=== PATIENT | male | born 1980 | race Caucasian/White ===

== ENCOUNTER 2019-08-14 23:42 | Emergency (ER) | payer SELFPAY ==
[2019-08-14 23:49] VITALS: BP 125/79; PULSE 76; RESP 16; TEMP 37.1; O2SAT 98
--- NOTE | 2019-08-15 00:12 | ED.GENADUL_ITS ---
Discharge Plan Disposition Patient Disposition: HOME Discharge Details Chief Complaint: DentalOral Clinical Impression: Abscess, dental, Current smoker Primary Care Provider: None,None ED Provider: Clif Morton Home Meds and New Rx's Prescriptions: New amoxicillin-pot clavulanate [Augmentin] 875-125 mg tablet 1 tab PO BID Qty: 13 RF: 0 Discontinued clindamycin HCl 300 mg Capsule 300 mg PO Q6H RF: 0 Discharge Instructions Instructions: Dental Abscess (ED), Cigarette Smoking and Your Health (GEN) Additional Instructions: Please take antibiotic as prescribed. Please take ibuprofen over the counter. Take 600mg by mouth every 6 hours as needed for pain. Please take acetaminophen (tylenol) - 650mg every 6 hours by mouth as needed for pain. Please contact a dentist to arrange timely follow-up. Please contact a primary care physician to arrange follow-up. Return to the ER for any worsening or new concerning symptoms. Medical Decision Making 38-year-old male smoker with chronic dental disease here with tooth #4 periapical dental abscess despite ceftriaxone earlier today. Mucosal membrane was anesthetized with bupivacaine topical gel, a periapical dental block was performed and abscess was incised and drained without complication and after informed consent. Plan will be to switch to bacteriocidal Augmentin, discontinue clindamycin and have him follow-up with a dentist. Patient is motivated to stop smoking. He does not currently have a primary care physician and is uninsured. I will ask care management to assist in arranging primary care follow-up. Patient was provided dental provider list in the area. He understands importance of timely follow-up and that he should return should have any worsening or new concerning symptoms. HPI General Mode of arrival: ambulatory . Date/Time Provider Initiated Documentation: 08/14/19 23:55 . Limitations to Documentation: no limitations . Information obtained by: patient . HPI Narrative: 38-year-old male presents with chief complaint of dental pain. Patient notes he started to have a tooth ache right upper molar 3 days ago. Ache was mild and has been persistent and now worsening. He was seen today at urgent care and given a dose of ceftriaxone and prescribed clindamycin. He notes that since earlier today he is developed worsening facial swelling involving his right cheek. Symptoms are now severe with no modifiers. He did have some subjective fever this morning that has re solved. Patient does note poor dentition with chronic tooth fractures. Related Data Home Medications Medication Instructions Recorded Confirmed amoxicillin-pot clavulanate 1 tab PO BID #13 tab 08/15/19 [Augmentin] Previous Rx's Medication Instructions Recorded amoxicillin-pot clavulanate 1 tab PO BID #13 tab 08/15/19 [Augmentin] Allergies Allergy/AdvReac Type Severity Reaction Status Date / Time No Known Allergies Allergy Unverified 08/14/19 23:53 General Stated Complaint: DentalOral CHRISTAL: 3 Review of Systems Constitutional Constitutional: Reports as per HPI and Reports fever(s) ENT Ears, Nose, Mouth, and Throat: Reports as per HPI and Reports facial pain PFSH Social History Do you feel safe at home: Yes Exam Const General: cooperative and no acute distress HENMT Face and sinus: other (right cheek swollen) Mouth: moist mucous membranes Teeth and gingiva: poor dentition and other (tooth #4 with chronic fx and periapical abscess) Throat: posterior oropharynx normal and uvula midline Eyes Conjunctivae: normal conjunctivae EOM: EOM intact bilaterally Neck Neck: trachea midline and supple Resp Auscultation: clear to auscultation bilaterally, no rales, no rhonchi and no wheezes Cardio Jugular venous pressure: no JVD Rate: regular rate and not tachycardic Rhythm: regular rhythm Skin General skin exam: no rashes or lesions noted Neuro General: alert and awake Course Vital Signs Vital signs: Vital Signs Temperature 37.1 C 08/14/19 23:49 Pulse 76 08/14/19 23:49 Respiratory Rate 16 08/14/19 23:49 Blood Pressure 125/79 08/14/19 23:49 Pulse Oximetry 98 08/14/19 23:49 Temperature 37.1 C 08/14/19 23:49 Pulse 76 08/14/19 23:49 Respiratory Rate 16 08/14/19 23:49 Respiratory Effort 08/15/19 00:00 Blood Pressure 125/79 08/14/19 23:49 Pulse Oximetry 98 08/14/19 23:49 Oxygen Delivery Method Room Air 08/14/19 23:49 Oxygen Flow Rate 0 08/14/19 23:49 Pain Level 8 08/14/19 23:49 Procedures Abscess I/D Site: Other (periapical dental) Side (if applicable): Right Local Anesthetic: Other Anesthetic (topical bupivicaine) Technique: Incised with #11 Blade Amount of fluid expressed (mL): 2
[2019-08-15] MEDS: Benzocaine 20% Gel 30 GM JAR MM (00:44)
[2019-08-15] MEDS: Amoxicillin 875/Clav. 125 TAB PO (00:44)
[2019-08-15] MEDS: Lidocaine 2% Multi-Dose 50 ML VIAL (00:44)
[2019-08-15] MEDS: Lidocaine 2% Pres-Free 5 ML VIAL 3 ML IJ (00:44)
== END 2019-08-15 00:47 | disposition home or self-care (01) ==
LOC: ER 08-15 00:51
PROVIDERS: Emergency Provider Student in an Organized Health Care Education/Training Program
DX: K04.7 Periapical abscess without sinus (principal); F17.210 Nicotine dependence, cigarettes, uncomplicated
CPT/HCPCS: 99283

== ENCOUNTER 2020-01-14 16:21 | Emergency (ER) | payer SELFPAY ==
--- NOTE | 2020-01-14 16:31 | ED.GENADUL_ITS ---
Discharge Plan Disposition Patient Disposition: HOME Condition: Stable Discharge Details Chief Complaint: Laceration Clinical Impression: Laceration of wrist, left Primary Care Provider: None,None ED Provider: Jayne Leblanc Discharge Instructions Instructions: Laceration (ED) Additional Instructions: Alternate tylenol and motrin as needed and directed for pain. Keep wound clean and dry. Apply topical antibiotic ointment if you notice any redness, swelling or pain. Cover wound with bandage if risk of contamination. Otherwise you can keep the wound open to air if resting at home to allow edges to dry and heal. Return to the emergency department in 1 week for suture removal. Discharge Data Discharge Date/Time-TO BE ENTERED AT DEPARTURE: 01/14/20 17:30 Discharge Physician: Jayne Leblanc Medical Decision Making 39-year-old male presents with left distal wrist laceration when slipped off a roof and cut with a metal sheet. There is a 3 cm straight laceration noted diagonally on distal left medial wrist. There is fast oozing noted but no pulsatile bleeding. Bleeding controlled with pressure. Wound irrigated well and explored and no evidence of tendon, vascular or nerve injury. Neurovascular intact. An x-ray was ordered initially due to amount of bleeding and question of unknown deeper bony injury. After wound closed, patient had full range of motion of wrist with out any edema, ecchymosis or bony injury. He declined x-ray. 6 sutures placed. Boostrix administered. He was advised to return to the ED in 1 week for suture removal. Advised on proper wound care. Medical Records Medical records reviewed: Yes I reviewed the patient's medical records. HPI General Mode of arrival: ambulatory . Date/Time Provider Initiated Documentation: 01/14/20 16:26 . Limitations to Documentation: no limitations . Information obtained by: patient . HPI Narrative: Patient is a 39-year-old male who presents with left wrist laceration sustained when he slipped off a roof and cut with a metal sheet just prior to arrival. Patient is unsure of his tetanus status. He does admit to pain around the area but he is unsure of any bony injury. He denies any other injuries or lacerations. Related Data Allergies Allergy/AdvReac Type Severity Reaction Status Date / Time No Known Allergies Allergy Unverified 01/14/20 16:39 General CHRISTAL: 3 Review of Systems All systems reviewed & are unremarkable except as noted in HPI and below Constitutional Constitutional: Reports as per HPI, Denies chills and Denies fever(s) Eyes Eyes: Denies blurry vision ENT Ears, Nose, Mouth, and Throat: Denies dizziness, Denies sore throat and Denies throat swelling Cardiovascular Cardiovascular: Denies chest pain and Denies dyspnea Respiratory Respiratory: Denies cough and Denies dyspnea Gastrointestinal Gastrointestinal: Denies abdominal pain, Denies diarrhea and Denies vomiting Genitourinary Genitourinary: Denies hematuria and Denies dysuria Musculoskeletal Musculoskeletal: Denies back pain and Denies numbness Integumentary/Breasts Skin/Breast: Denies lesions and Denies rash Neurologic Neurologic: Denies dizziness, Denies localized weakness and Denies numbness Allergic/Immunologic Allergic/Immunologic: Denies throat swelling [facility] Medical History (Updated 01/14/20 @ 17:12 by Jayne Leblanc DO) No significant past medical history (Acute) Surgical History (Updated 01/14/20 @ 16:32 by Jayne Leblanc DO) No significant past surgical history (Acute) Social History Alcohol Intake: current Alcohol type: beer Do you feel safe at home: Yes Exam Const General: cooperative, healthy appearing and no acute distress HENMT Head: normal to inspection Mouth: oral mucosae normal Eyes General: appearance normal, both eyes and all related structures Neck Neck: normal visual inspection Resp Effort & Inspection: normal respiratory effort and able to speak in complete sentences Cardio Rate: regular rate Skin General skin exam: no rashes or lesions noted Neuro General: patient alert, patient awake and patient oriented x3 Motor: muscle tone normal throughout Extrem Elbow/forearm/wrist images: 1. 3 cm straight laceration noted on lateral distal aspect of left forearm. There is a small hematoma noted subcutaneously. There is fast active oozing of blood but no pulsatile bleeding noted. Other: Left radial and ulnar pulses intact. Tenderness to palpation overlying left distal wrist. No bony deformities noted. No obvious foreign bodies noted. Psych Appearance: grossly normal Affect: normal affect Procedures Laceration Laceration 1: Site: upper extremity (wrist) Side (If applicable): left Size (cm): 3 Description: linear Depth: simple, single layer Local Anesthetic: Lidocaine 1% and with Epi Amount of anesthesia used (mL): 9 Pre-repair: wound explored, irrigated extensively and deep structures intact Skin layer closed with: nylon Size (cm): 5-0 Number of sutures: 6 Technique: simple, interrupted
[2020-01-14 16:32] VITALS: BP 151/87; PULSE 96; TEMP 38; O2SAT 102
[2020-01-14 17:32] VITALS: TEMP 37.4
== END 2020-01-14 17:30 | disposition home or self-care (01) ==
PROVIDERS: Emergency Provider Physician Assistant
DX: S61.512A Laceration without foreign body of left wrist, initial encounter (principal); W26.8XXA Contact with other sharp object(s), not elsewhere classified, initial encounter
CPT/HCPCS: 12002; 90471

== ENCOUNTER 2024-10-21 12:07 | Inpatient (IN) | payer MEDICAID, SELFPAY ==
[2024-10-21] VITALS (21 sets, daily range): BP systolic 128–182; BP diastolic 66–162; PULSE 72–102; RESP 14–23; TEMP 36.6–37; O2SAT 92–100
--- NOTE | 2024-10-21 | DI.RAD_ITS ---
Exam(s) XR PORTABLE CHEST AP POST LINE EXAM: XR PORTABLE CHEST AP POST LINE CLINICAL HISTORY: Placement of PTX catheter. TECHNIQUE: 2D digital imaging was performed. COMPARISON: No exams were available for comparison FINDINGS: Single AP portable view. Heart size is normal. Mediastinum not widened or shifted Left 9th rib fracture noted with some displacement. There is subcutaneous emphysema over the left ch est as seen on proceeding CT scan. There is a thin caliber left side thoracotomy tube. No obvious p neumothorax at this time. No shift. No obvious infiltrates nor prominent lung contusion. IMPRESSION: As above. DATA REPOSITORY: RADIATION DOSE DELIVERED:
--- NOTE | 2024-10-21 12:15 | DI.CT_ITS ---
Exam(s) CT CHEST WO EXAM: CT CHEST WO CLINICAL HISTORY: fall, L rib pain. TECHNIQUE: Multi planar reconstructions were performed. CONTRAST MATERIAL: None COMPARISON: No exams were available for comparison FINDINGS: CHEST: LUNGS: There is a minimally displaced fracture of the posterolateral aspect of the left 9th rib with abundant overlying subcutaneous emphysema. No other rib fractures identified. There is mild subjace nt subpleural lung contusion. And there is also an ipsilateral left-sided pneumothorax approximately 10 percent. In the opposite-right lung there is a thin walled bulla in the medial apex. There also a few small r ight lung nodules including a subpleural 3 millimeter right lower lobe nodule and the 2nd 2-[address] right lower lobe nodule. No pleural effusion. MEDIASTINUM: No evidence of sternal fracture nor mediastinal hematoma. Incidentally noted is a perip herally calcified nodule or in the right thyroid lobe which appears taller than wider in the transver se plane. Recommend ultrasound.No obvious axillary adenopathy CARDIAC: Heart size is normal. There is no pericardial effusion.Caliber of the thoracic aorta is wit hin normal limits. VISUALIZED UPPER ABDOMEN:No significant findings. Left 9th rib fracture as described above. No vert ebral fractures. OSSEOUS: No significant osseous lesions.. IMPRESSION: 1. There is a mildly displaced fracture of the posterolateral aspect of the left 9th rib with small s ubjacent lung contusion and ipsilateral pneumothorax approximately 10 percent. No pleural effusion. 2. No acute right hemithoracic findings although there are few small benign-appearing nodules in the right lung noted. RADIATION DOSE DELIVERED: 333.65mGy.cm Total DLP DATA REPOSITORY: All CT scans at this facility are submitted to the National Radiology Data Registry (NRDR) Dose Index Registry (DIR) with the [employer] (A[employer]). RADIATION OPTIMIZATION: All CT scans at this facility use at least one of these dose optimization te chniques: automated exposure control; mA and/or kV adjustment per patient size (includes targeted exa ms where dose is matched to clinical indication); or iterative reconstruction.
--- NOTE | 2024-10-21 12:18 | ED.GENADUL_ITS ---
Discharge Plan Disposition Patient Disposition: Admit to [facility] Condition: Stable Discharge Details Chief Complaint: Chest/Rib Clinical Impression: Fracture of rib of left side, Pneumothorax Primary Care Provider: None,None ED Provider: David Good Home Meds and New Rx's Prescriptions: No Action No Known Home Meds HPI General Date/Time Provider Initiated Documentation: 10/21/24 12:18 . HPI Narrative: 44 year-old male presents to ED today by POV/ambulating with a chief complaint of fall into a counter with onset about 2 hours ago. Quality described as very painful in L axilla, no radiation to flail segment, paradoxical motion, respiratory distress, endorses mild shortness of breath, nausea due to pain. Severity is described as severe. Palliating factors include nothing specific. Provoking factors include nothing specific. Events leading up to the incident/Associated Symptoms: Patient is a daily drinker. Patient not anticoagulated. Related Data Home Medications ?Medication ?Instructions ?Recorded ?Confirmed Unknown [No Known Home Meds] 10/21/24 10/21/24 Allergies Allergy/AdvReac Type Severity Reaction Status Date / Time No Known Allergies Allergy Unverified 01/14/20 16:39 General Stated Complaint: Chest/Rib CHRISTAL: 3 Review of Systems All systems reviewed & are unremarkable except as noted in HPI and below Exam Narrative Exam Narrative: GENERAL APPEARANCE: Well-nourished, non-toxic, awake and alert, atraumatic, no acute distress. SKIN: Warm, pink, dry, intact, without rashes/lesions/ulcerations. HEAD: Normocephalic, atraumatic, normal hair distribution for gender/age. EYES: Normal conjunctiva, no exudates on lids/lashes. ENT: Nares patent, no circumoral cyanosis, no facial swelling NECK: Supple, trachea midline, painless cervical ROM. LUNGS/CHEST: Lungs CTA bilaterally, non-labored respirations, normal A/P diameter, symmetrical expansion, no chest wall deformity, subcutaneous emphysema in the left posterior chest, focal tenderness in the left posterior lower ribs, no anterior rib tenderness, question diminished lung sounds in the left axilla without rhonchi or wheezing HEART (CV/PV): Regular rate and rhythm without murmur, no peripheral edema, no JVD. ABDOMEN: Soft, non-distended, no guarding. MSK: Normal ROM, no swelling/deformity to bilateral UEs or LEs, moving all extremities without weakness, no cyanosis, spine midline without tenderness, normal curvature. NEURO: Mental Status AAOx4 - alert to person, place, time, events No facial droop, no forehead involvement. Motor: No focal weakness - strength 5/5 in bilateral UEs and LEs, proximal and distal, symmetric. Sensory: sensation intact to light touch globally. Gait normal: patient ambulated without ataxia into ED room. PSYCH: euthymic, cooperative, pleasant, appropriate speech Course Vital Signs Vital signs: Vital Signs Temperature 36.6 C 10/21/24 12:11 Pulse 90 10/21/24 12:11 Respiratory Rate 18 10/21/24 12:11 Blood Pressure 137/90 10/21/24 12:11 Pulse Oximetry 94 10/21/24 12:11 Temperature 36.6 C 10/21/24 12:11 Pulse 90 10/21/24 12:11 Respiratory Rate 18 10/21/24 12:11 Blood Pressure 137/90 10/21/24 12:11 Pulse Oximetry 94 10/21/24 12:11 Medical Decision Making This dictation utilizes [id number] dictation software and may contain unedited grammatical errors. 44 year-old male presents to ED today by POV/ambulating with a chief complaint of fall into a counter with onset about 2 hours ago. Quality described as very painful in L axilla, no radiation to flail segment, paradoxical motion, respiratory distress, endorses mild shortness of breath, nausea due to pain. Severity is described as severe. Palliating factors include nothing specific. Provoking factors include nothing specific. Events leading up to the incident/Associated Symptoms: Patient is a daily drinker.. Patients' medical history: Tobacco use. Family and social history: Endorses daily drinks 3 to 4/day but no recent travel, no sick contacts. Pertinent exam findings / vital signs include subcutaneous emphysema in the left posterior chest, focal tenderness in the left posterior lower ribs, no anterior rib tenderness, question diminished lung sounds in the left axilla without rhonchi or wheezing, benign abdomen, neuro intact. Differential / pathologies of concern include rib fracture, pneumothorax, hemothorax, contusion. Diagnostic studies of: -CT chest without-shows displaced ninth rib fracture with small pneumothorax and subcutaneous emphysema. Interventions of: -Provided Tylenol, ibuprofen, oxycodone, consulted with surgery who admits the patient. ED Course/Assessment/Plan: 44-year-old male fell in his kitchen landing against a countertop and having severe left-sided rib pain especially with deep breathing, he was found to have displaced ninth rib fracture as well as small to moderate left-sided pneumothorax with subcutaneous emphysema in the chest wall, his pain was well- controlled and he was placed on O2 by nonrebreather and admitted to the surgery service by Dr. Harmony Garcia at 1400 hrs. Findings not consistent with tension PTX. Disposition of Pneumothorax, Fracture of Rib of Left Side. Patient verbalized understanding of the plan and return to ED criteria and engaged in shared decision making. Medical Records Medical records reviewed: Yes I reviewed the patient's medical records. Imaging Data Radiologic Study: Attestation: I personally reviewed and interpreted this imaging study as follows: Imaging: CT Scan Radiologist's impression: Addendum created by Nemesio Coburn MD on 10/21/2024 1:10:53 PM EST: THIS REPORT CONTAINS FINDINGS THAT MAY BE CRITICAL TO PATIENT CARE. The findings were verbally communicated via telephone conference with DAVID GOOD at 1:10 PM EST on 10/21/2024. The findings were acknowledged and understood. Initial report created on 10/21/2024 1:09:22 PM EST: PROCEDURE INFORMATION: Exam: CT Chest Without Contrast; Diagnostic Exam date and time: 10/21/2024 12:48 PM Age: 44 years old Clinical indication: Injury or trauma; Other: Fall 4 feet from counter/ left lateral ib pain TECHNIQUE: Imaging protocol: Diagnostic computed tomography of the chest without contrast. 3D rendering (Not supervised by radiologist): MIP and/or 3D reconstructed images were created by the technologist. COMPARISON: No relevant prior studies available. FINDINGS: Thyroid: Partially calcified right thyroid nodule measuring 1.4 cm. Lungs: Right apical bullae. Atelectatic changes in the left lower lobe and right middle lobe. There are multiple subpleural right lower lobe and right middle lobe pulmonary nodules measuring up to 5 mm in the right lower lobe. Left lower lobe ground-glass opacity, consistent with pulmonary contusion. Pleural spaces: There is a small left apical pneumothorax. Heart: Unremarkable. No cardiomegaly. No pericardial effusion. Mediastinal space: No mediastinal shift. Lymph nodes: Unremarkable. No enlarged lymph nodes. Vasculature: Unremarkable. No aortic aneurysm. Liver: There is a diffuse decrease in hepatic parenchymal density, consistent with fatty infiltration. Bones/joints: Minimally displaced fracture of the left 9th rib involving the posterior arch. Soft tissues: There is left posterior and lateral chest wall emphysema. IMPRESSION: Minimally displaced fracture of the posterior arch of the left 9th rib with small left pneumothorax and left chest wall emphysema. No segmental rib fracture. Dictated and Authenticated by: Nemesio Coburn MD. Quality:SDOH Health Related Social Needs: No Data to Display PFSH All Active Problems Pneumothorax (Acute) Fracture of rib of left side (Acute) Smoker (Acute) Medical History (Updated 10/21/24 @ 14:31 by GAYLA Meek) No significant past medical history Surgical History (Updated 01/14/20 @ 16:32 by Jayne Leblanc DO) No significant past surgical history Social History Smoking/Tobacco Use Status: Current every day Tobacco Type: cigarettes Smoking risk assessment performed?: Yes Alcohol Intake: current Alcohol Intake frequency: 3 or more drinks per day Alcohol type: beer Drug use: Daily Substance use type: marijuana Do you feel safe at home: Yes PAWSS Have you Been Recently Intoxicated or Drunk Within the Last 30 days?: No Have you Ever Experienced Previous Episodes of Alcohol Withdrawal?: No Have you ever Experienced Withdrawal Seizures?: No Have you ever Experienced Delirium Tremens(DT)s?: No Have you ever undergone Alcohol Rehabilitation Treatment (i.e, inpt ot outpatient treatment programs)?: No Have you ever Experienced Blackouts?: No Have you ever Combined Alcohol with other Downers within the last 90 days?: No Have you ever Combined Alcohol with any other Substance of Abuse during the last 90 days?: No Positive Blood Alcohol level on Presentation? [PCS.BAL]: No Evidence of Increased Autonomic Activity (i.e. HR>120, tremor, sweating, agitation, nausea)?: No Result: 0
[2024-10-21] MEDS: oxyCODONE 5 MG TAB PO (12:27)
[2024-10-21] MEDS: Ibuprofen 400 MG TAB PO (12:27)
[2024-10-21] MEDS: Acetaminophen 500 MG TAB 1000 MG PO ×2 (12:28→18:30)
--- NOTE | 2024-10-21 13:09 | DI.VRAD_ITS ---
Addendum created by Nemesio Coburn MD on 10/21/2024 1:10:53 PM EST: THIS REPORT CONTAINS FINDINGS THAT MAY BE CRITICAL TO PATIENT CARE. The findings were verbally communicated via telephone conference with RAJ GOOD at 1:10 PM EST on 10/21/2024. The findings were acknowledged and understood. Initial report created on 10/21/2024 1:09:22 PM EST: PROCEDURE INFORMATION: Exam: CT Chest Without Contrast; Diagnostic Exam date and time: 10/21/2024 12:48 PM Age: 44 years old Clinical indication: Injury or trauma; Other: Fall 4 feet from counter/ left lateral ib pain TECHNIQUE: Imaging protocol: Diagnostic computed tomography of the chest without contrast. 3D rendering (Not supervised by radiologist): MIP and/or 3D reconstructed images were created by the technologist. COMPARISON: No relevant prior studies available. FINDINGS: Thyroid: Partially calcified right thyroid nodule measuring 1.4 cm. Lungs: Right apical bullae. Atelectatic changes in the left lower lobe and right middle lobe. There are multiple subpleural right lower lobe and right middle lobe pulmonary nodules measuring up to 5 mm in the right lower lobe. Left lower lobe ground-glass opacity, consistent with pulmonary contusion. Pleural spaces: There is a small left apical pneumothorax. Heart: Unremarkable. No cardiomegaly. No pericardial effusion. Mediastinal space: No mediastinal shift. Lymph nodes: Unremarkable. No enlarged lymph nodes. Vasculature: Unremarkable. No aortic aneurysm. Liver: There is a diffuse decrease in hepatic parenchymal density, consistent with fatty infiltration. Bones/joints: Minimally displaced fracture of the left 9th rib involving the posterior arch. Soft tissues: There is left posterior and lateral chest wall emphysema. IMPRESSION: Minimally displaced fracture of the posterior arch of the left 9th rib with small left pneumothorax and left chest wall emphysema. No segmental rib fracture. Dictated and Authenticated by: Nemesio Coburn MD. Ordering:ALIE Hernandez MD
[2024-10-21] MEDS: HYDROmorphone 2 MG/ML SYR (16:34)
--- NOTE | 2024-10-21 16:42 | HPE_ITS ---
Date of service: 10/21/24 Time of Service: 16:42 Assessment and Plan Assessment and plan (1) Marijuana use, continuous: Status: Acute (2) Daily consumption of alcohol: Status: Acute (3) Emphysematous bleb of lung: Status: Acute (4) Fracture of rib of left side: Status: Acute (5) Pneumothorax: Status: Acute Assessment and plan: We will plan on placing a pneumothorax catheter. Risks include bleeding, infection, pneumonia, blood clots, reaction to medications, damage to lung, blood vessels, bronchus, clotting of the tube and need to place chest tube. Patient consents to insertion. Patient will be admitted Continuous suction -Pulmonary toilet Pain management Hopefully DC catheter in a.m. (6) Smoker: Status: Acute History of Present Illness Narrative: Patient fell off the kitchen counter last night and struck the table. Today he has been experiencing increasing chest pain and came into the ER. He has a broken ninth rib on the left, a large hematoma, and a pneumothorax. He smokes a pack a day He drinks a sixpack or more a day Uses THC daily He is allergic to some type of antibiotics to use for dental infections He is not on any prescription medications He denies any medical problems The only surgery he has ever had is a left sided tendon repair. He denies complications with anesthesia. PFSH All Active Problems Emphysematous bleb of lung (Acute) Daily consumption of alcohol (Acute) Marijuana use, continuous (Acute) Pneumothorax (Acute) Fracture of rib of left side (Acute) Smoker (Acute) Medical History (Updated 10/21/24 @ 16:46 by Harmony Garcia DO) No significant past medical history Surgical History (Updated 01/14/20 @ 16:32 by Jayne Leblanc DO) No significant past surgical history Social History Smoking/Tobacco Use Status: Current every day Tobacco Type: cigarettes Smoking risk assessment performed?: Yes Alcohol Intake: current Alcohol Intake frequency: 3 or more drinks per day Alcohol type: beer Drug use: Daily Substance use type: marijuana Housing: apartment Do you feel safe at home: Yes Meds Allergies and Home Medications Allergies Allergy/AdvReac Type Severity Reaction Status Date / Time No Known Allergies Allergy Unverified 01/14/20 16:39 Home Medications ?Medication ?Instructions ?Recorded ?Confirmed ?Type Unknown [No Known Home Meds] 10/21/24 10/21/24 History Results Last Vital Signs Temp 36.7 C 10/21/24 14:53 Pulse 102 H 10/21/24 15:31 Resp 19 10/21/24 15:31 BP 182/162 H 10/21/24 15:31 Pulse Ox 100 10/21/24 15:31 PAWSS Have you Been Recently Intoxicated or Drunk Within the Last 30 days?: No Have you Ever Experienced Previous Episodes of Alcohol Withdrawal?: No Have you ever Experienced Withdrawal Seizures?: No Have you ever Experienced Delirium Tremens(DT)s?: No Have you ever undergone Alcohol Rehabilitation Treatment (i.e, inpt ot outpatient treatment programs)?: No Have you ever Experienced Blackouts?: No Have you ever Combined Alcohol with other Downers within the last 90 days?: No Have you ever Combined Alcohol with any other Substance of Abuse during the last 90 days?: No Positive Blood Alcohol level on Presentation? [PCS.BAL]: No Evidence of Increased Autonomic Activity (i.e. HR>120, tremor, sweating, agitation, nausea)?: No Result: 0 Time Spent Time spent with Patient: 55-74 minutes Time was spent: preparing to see the patient(eg.review tests), obtaining and/or reviewing separately otained hiistory, ordering medications,tests, procedures, referring, communicating with other health childcare provider, indepentently interpreting results, counseling the patient, care coordination and other
--- NOTE | 2024-10-21 16:47 | W.PM.OP ---
Operative Note Operative Note PRE-OP DIAGNOSIS: Left pneumothorax and rib fracture POST-OP DIAGNOSIS: same SURGEON: Harmony Garcia ANESTHESIA TYPE: Local By Surgeon Refer to Anesthesia Record ESTIMATED BLOOD LOSS: 1 PATHOLOGY: none sent COMPLICATIONS: None Patient was transported to: no change Patient's condition: stable Procedure Description: CONSENT:? Consent was obtained from the pt prior to the procedure. Indications, risks, and benefits were explained, including but not limited to: bleeding, infection, damage to lung, persistent air leak, and complications of the anethesetics.? ? PROCEDURE SUMMARY: A time out was performed and after the chest x-ray was reviewed, the appropriate side was confirmed and marked. My hands were washed immediately prior to the procedure. The patient was prepped and draped in a sterile manner using chlorhexidine scrub after the patient was positioned in the usual fashion. A total of 10 ml of 1% lidocaine was used to anesthetized the skin, subcutaneous tissue, superior aspect of the rib periosteum and parietal pleura. A stab incision was then made in the left 2nd intercostal space / midaxillary line. The catheter over needle system was introduced into the chest.? Air was aspirated as the catheter is inserted into the chest; there was no blood.? The catheter was inserted easily. The catheter was sutured to the skin at the insertion site, and connected securely with tape to a pleurovac. A sterile occlusive dressing was placed over the insertion site. No immediate complications were noted. A post-procedure chest x-ray is pending at the time of this note. ?Estimated blood loss is <1cc. Date of Procedure: 10/21/24
--- NOTE | 2024-10-21 17:44 | W.PC.ACHO ---
Registration Status: Primary Language: Preferred Language: ED Information & Data Chief Complaint Chest/Rib 10/21/24 12:18 Triage Note Patient complaining of left 10/21/24 12:11 rib pain. Patient fell off his counter, hitting another counter Medical / Surgical History (Last Updated 01/14/20 @ 16:32 by Jayne Leblanc DO) No significant past medical history (Last Updated 01/14/20 @ 16:32 by Jayne Leblanc DO) No significant past surgical history Most Recent Vital Signs Temperature 36.7 C 10/21/24 14:53 Pulse 75 10/21/24 17:30 Pulse 74 10/21/24 17:40 Respiratory Rate 16 10/21/24 17:40 Respiratory Effort Normal 10/21/24 12:59 Respiratory Depth Normal 10/21/24 12:59 Respiratory Pattern Normal 10/21/24 12:59 Blood Pressure 151/77 H 10/21/24 17:30 Blood Pressure Mean 102 10/21/24 17:30 Pulse Oximetry 92 10/21/24 17:40 Oxygen Delivery Method Non-Rebreather 10/21/24 13:22 Oxygen Flow Rate 0 10/21/24 13:22 Pain Level 6 10/21/24 12:59 Allergies No Known Allergies Allergy (Unverified 01/14/20 16:39) Precautions Isolation Standard precaution 10/21/24 12:13 Diet Orders Category Date Time Status Regular/Normal [DIET] Nutrition 10/21/24 Dinner Active Intake and Output - 24 Hour Total 10/21/24 12:07 thru 10/21/24 12:11 Weight 86.183 kg Falls Risk Assessment History of Falls Previous History 10/21/24 12:59 Contributing Factors No Factors 10/21/24 12:59 Ambulatory Aids Independent 10/21/24 12:59 Tubes/Lines None 10/21/24 12:59 Gait Evaluation No gait disturbance 10/21/24 12:59 Cognition No cognitive impairment 10/21/24 12:59 Fall Total Score 15 10/21/24 12:59 Level of Risk Standard/Low Risk 10/21/24 12:59 Problems Emphysematous bleb of lung (Acute) Daily consumption of alcohol (Acute) Marijuana use, continuous (Acute) Pneumothorax (Acute) Fracture of rib of left side (Acute) Smoker (Acute) v v v v v v v v v Sending and/or Receiving Nurses: Please use comment section below to note any information pertinent to the patient hand-off not included above. Information / Comments: Report received from: Taylor HUNG (Emergency Department )
[2024-10-21] MEDS: Lidocaine 5% Patch 1 PATCH TP (18:29)
[2024-10-21] MEDS: Ketorolac 15 MG/ML VIAL IVP (18:29)
[2024-10-21] MEDS: Nicotine 14 MG/24 HR PATCH TD (18:37)
[2024-10-21] MEDS: Normal Saline Flush 10 ML SYR IVP (20:28)
[2024-10-22] VITALS (8 sets, daily range): BP systolic 134–140; BP diastolic 84–94; PULSE 72–85; RESP 3–18; TEMP 35.7–37.2; O2SAT 97–98
[2024-10-22] MEDS: Acetaminophen 500 MG TAB 1000 MG PO ×5 (00:27→23:40)
[2024-10-22] MEDS: Ketorolac 15 MG/ML VIAL IVP ×5 (00:28→23:40)
[2024-10-22] MEDS: Albuterol 2.5 MG/3 ML INH SOLN VIAL UPD ×2 (01:55→11:26)
[2024-10-22] MEDS: Nicotine 14 MG/24 HR PATCH TD (07:33)
[2024-10-22] MEDS: Normal Saline Flush 10 ML SYR IVP ×2 (07:34→19:28)
--- NOTE | 2024-10-22 08:23 | DI.RAD_ITS ---
Exam(s) XR PORTABLE CHEST AP EXAM: XR PORTABLE CHEST AP CLINICAL HISTORY: Follow-up on pneumothorax. TECHNIQUE: 2D digital imaging was performed. COMPARISON: CR XR PORTABLE CHEST AP POST LINE from 10/21/2024 FINDINGS: Single AP portable view. Position of the thin caliber chest tube is stable. Fractured left 9th rib again noted as well as ips ilateral subcutaneous emphysema, unchanged. There is a tiny remaining low 5 percent pneumothorax in the left lung apex. No infiltrates nor pleur al effusions. Heart size is upper normal. The mediastinum is not widened. IMPRESSION: Thin caliber left chest tube. Minimal remaining pneumothorax. DATA REPOSITORY: RADIATION DOSE DELIVERED:
--- NOTE | 2024-10-22 09:21 | DI.VRAD_ITS ---
PROCEDURE INFORMATION: Exam: XR Chest Exam date and time: 10/22/2024 8:18 AM Age: 44 years old Clinical indication: Condition or disease; Other: Follow up on pneumothorax TECHNIQUE: Imaging protocol: Radiologic exam of the chest. Views: 1 view. COMPARISON: CR XR PORTABLE CHEST AP POST LINE 10/21/2024 5:15 PM FINDINGS: Tubes, catheters and devices: Stable small caliber chest tube terminates in the left upper lobe.. Lungs: Left basilar atelectasis. Pleural spaces: Very minimal pneumothorax is seen in the left apex.. Heart/Mediastinum: Stable cardiac silhouette Bones/joints: Stable left rib fracture Soft tissues: Subcutaneous emphysema is noted in the left supraclavicular region IMPRESSION: 1. Stable small caliber chest tube terminates in the left upper lobe.. 2. Very minimal pneumothorax is seen in the left apex.. Dictated and Authenticated by: Orlando Saldaña MD. Ordering:NELSON Antunez MD
--- NOTE | 2024-10-22 09:40 | PDOC.CMIN ---
Date of service: 10/22/24 Time of Service: 09:40 Care Management Initial Assmt Initial Assessment Reason for Hospitalization: pneumothorax, rib fracture Functional Status/Living Situation Patient Presentation: Jelani was sitting up in bed when CM met with him. He stated that he is still feeling pain, which comes and goes, especially with movement. 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 He stated that he does not know when he will be able to return to work after this injury. CM sent a referral to [employer] for insurance support. CM will also coordinate a PCP referral, as he does not have a current PCP. CM asked if he is interested in support for alcohol or tobacco cessation support; he stated that this situation has scared him, and that is motivating for him to stop smoking and reduce his alcohol intake as well. He declined any supports, and stated that he is currently reading a book titled The Easy Way to Stop Smoking by Ayden Figueroa, and it is very helpful, and he feels that this will be effective in changing his behavior/habits, by changing his mindset. CM will continue to follow. Town of Residence: [facility] Resides with: Alone Natural Supports: Mother, Lelia Instrumental Activities of Daily Living (ADLs): Independent Medications Medication Management: No Issues/Barriers identified Advance Directives Advance Directives: Do you have an Advance Directive: N 08/14/19 23:47 AD On File at [facility]: N 08/14/19 23:47 Date Asked 01/14/20 01/14/20 16:29 AD Date Reviewed COLST On File at [facility] COLST Date Scanned Code Status Resuscitation Status Full Code Insurance Coverage/Financial Issues Insurance: self pay; [employer] referral sent Care Team Visit Care Team Role Provider Type None None Primary Care Provider NON-[facility] STAFF PHYSICIAN GAYLA Meek Emergency Provider [employer] Harmony Garcia, DO Admit Provider OSTEOPATHIC DOCTOR Attending Provider Discharge Potential Discharge Needs: Surgical F/U Appt Anticipated Barriers to Discharge: None Identified Patient/Family Education Needs: Review discharge instructions, discuss Ask Me Three Transportation: Private vehicle Plan: Anticipate Jelani will return home once medically cleared. CM sent a referral to [employer] for insurance support, and will provide him with a financial assistance packet for [facility]. He will transport home via private vehicle by family. He will follow up with surgical services and his discharge plan of care. CM will continue to follow. Social Determinants of Health Screening Social Determinants of Health last assessed: 10/22/24 Will the Patient Participate in the Screening?: Yes Do you worry about having a steady place to live?: yes What is your living situation today?: I have housing today, but am worried about losing it Problems where you live: no known problems In the past 12 months, have you had to go without electric, gas, oil or water in your home?: no Have you or anyone in your house had to go without enough food to eat?: no Has lack of transportation kept you from medical appointments or from doing things needed for daily living?: no Has anyone in your life made you feel unsafe or unsupported?: no How hard is it for you to pay for the very basics like food, housing, medical care, and heating? Would you say it is:: Somewhat hard Do you want help finding or keeping work or a job?: I do not need or want help If for any reason you need help with day-to-day activities such as bathing, preparing meals, shopping, managing finances, etc., do you get the help you need?: I could use a little more help How often do you feel lonely or isolated from those around you?: Rarely Do you speak a language other than Vietnamese at home?: Yes Does the patient want assistance with any of the above?: No Health Related Social Needs Health related social needs: housing instability, housed, with risk of homelessness (Z59.811), problems related to housing/economic circumstances (Z59.89), problems with daily activities (Z73.9), feeling lonely/isolated (Z60.8) and education (Z55.6) PFSH All Active Problems Emphysematous bleb of lung (Acute) Daily consumption of alcohol (Acute) Marijuana use, continuous (Acute) Pneumothorax (Acute) Fracture of rib of left side (Acute) Smoker (Acute) Medical History (Updated 10/21/24 @ 16:46 by Harmony Garcia DO) No significant past medical history Surgical History (Updated 01/14/20 @ 16:32 by Jayne Leblanc DO) No significant past surgical history Social History Smoking/Tobacco Use Status: Current every day Tobacco Type: cigarettes Smoking risk assessment performed?: Yes Alcohol Intake: current Alcohol Intake frequency: 3 or more drinks per day Alcohol type: beer Drug use: Daily Substance use type: marijuana Housing: apartment Do you feel safe at home: Yes
--- NOTE | 2024-10-22 10:49 | PHA.REVIEW2 ---
Pharmacy Admission Review Admission Clinical Review Admission Pharmacy Review: Emphysematous bleb of lung (Acute) Daily consumption of alcohol (Acute) Marijuana use, continuous (Acute) Pneumothorax (Acute) Fracture of rib of left side (Acute) Smoker (Acute) Penicillins Allergy (Unknown, Unverified 10/21/24 20:55) Hives Resuscitation Status Full Code Height 6 ft 2 in Weight 86.36 kg Comments Comments/Follow Ups: POD #1 Left pneumothorax and rib fracture Pharmacy Admission Review Renal Dosing Medications needing adjustments: N/A (No SCr on file) Anticoagulation DVT Prophylaxis: Reviewed Medications: Enoxaparin (40mg daily) Opiate Usage Evaluate Pain Scale/Pains Meds: Reviewed (morphine 2mg IVP q1h PRN - no doses given, pain level 5 at 0829 this AM) Scheduled Bowel Reg ordered if on Opiates?: No Relevant Labs Electrolytes, C-Reactive P, ESR: N/A (No labs on file) Cardiac Review BP, HR, EF%: Reviewed (BP 135/94, HR WNL) QTc Review QTc: Reviewed (No EKG on file) IV to PO Switch IV Medications: Reviewed (ketorolac, morphine and ondansetron) Home Meds Home Med List reviewed: Reviewed (No known home meds) Current Meds Current Medication Order Review: Intervened Comments: Added lidocaine patch removal order Comments Comments/Follow Ups: POD #1 Left pneumothorax and rib fracture
--- NOTE | 2024-10-22 11:16 | W.PM.PROGNOT ---
Date of Service Date of service: 10/22/24 Time of Service: 11:16 Assessment and Plan Assessment and plan (1) Fracture of rib of left side: Status: Acute (2) Smoker: Status: Acute (3) Pneumothorax: Status: Acute Assessment and plan: Resolved and catheter is removed. Encourage pulmonary toilet. Encourage pain management. Encourage ambulation. The patient does not have insurance and has no prescription drug coverage. He does not have any money for his prescriptions. He is worried about pain control and developing pneumonia. We will keep him in the hospital until we can get a firm plan for prescription coverage and plan discharge in a.m. We discussed the importance of smoking cessation to prevent any further complications with emphysema. Patient is very interested in smoking cessation. (4) Emphysematous bleb of lung: Status: Acute Subjective Subjective Interval history since last seen: Patient is seen and examined: they are doing well. THey have : no headaches. No CP or SOB. no productive cough. no dysuria. no leg pain or swelling. Patient notes pain with coughing. There is no airleak. Chest x-ray Dipika reviewed and show no pneumothorax. Chest tube is removed. Exam Narrative Exam Narrative: PHYSICAL EXAM GENERAL APPEARANCE: Alert, healthy appearance, oriented, x 3,? in no acute distress HYDRATION: Well hydrated HEAD, EYES, EARS, NECK, THROAT: Head is normocephalic, pupils equal, round, reactive to light and accommodation, ocular movement intact, sclera clear and no jaundice. ?Dentition intact. LUNGS: normal respiration/normal chest excursion. ?Clear to auscultation bilaterally. ?No wheeze. Puncture site is clean dry and intact. Catheter is removed and occlusive dressing applied. ?HEART: Regular rate and rhythm. no murmurs EXTREMITY: No edema or cyanosis.? no leg pain, redness, swelling.? No hernias.? Objective Last Vital Signs Temp 36.7 C 10/22/24 07:24 Pulse 77 10/22/24 07:24 Resp 18 10/22/24 08:27 BP 135/94 H 10/22/24 07:24 Pulse Ox 97 10/22/24 07:24 PAWSS Have you Been Recently Intoxicated or Drunk Within the Last 30 days?: Yes Have you Ever Experienced Previous Episodes of Alcohol Withdrawal?: No Have you ever Experienced Withdrawal Seizures?: No Have you ever Experienced Delirium Tremens(DT)s?: No Have you ever undergone Alcohol Rehabilitation Treatment (i.e, inpt ot outpatient treatment programs)?: No Have you ever Experienced Blackouts?: No Have you ever Combined Alcohol with other Downers within the last 90 days?: No Have you ever Combined Alcohol with any other Substance of Abuse during the last 90 days?: No Positive Blood Alcohol level on Presentation? [PCS.BAL]: No Evidence of Increased Autonomic Activity (i.e. HR>120, tremor, sweating, agitation, nausea)?: No Result: 1 Time Spent with Patient Time Spent with Patient: 25-34 minutes Time was spent: preparing to see the patient(eg.review tests), obtaining and/or reviewing separately otained hiistory, ordering medications,tests, procedures, referring, communicating with other health professional healthcare representative, indepentently interpreting results, counseling the patient, care coordination and other
[2024-10-22] MEDS: Patch Removal LIDOCAINE 1 EACH TP (12:08)
--- NOTE | 2024-10-22 12:35 | DI.RAD_ITS ---
Exam(s) XR PORTABLE CHEST AP EXAM: XR PORTABLE CHEST AP CLINICAL HISTORY: f/u PTX suction is off. TECHNIQUE: 2D digital imaging was performed. COMPARISON: CR,XR XR PORTABLE CHEST AP from 10/22/2024 FINDINGS: Single AP portable view. Heart size is upper normal. The mediastinum is not widened. Thin caliber left chest tube again noted, unchanged in position. Fractured left 9th rib again noted. Mild increased markings in the left lower lobe retrocardiac region are noted which are probably rel ated to hypoaeration. There is no obvious remaining pneumothorax. The amount of ipsilateral subcuta neous emphysema is unchanged. No right lung findings. No obvious pleural effusions. IMPRESSION: As above. Minimal if any significant remaining pneumothorax on the left side. DATA REPOSITORY: RADIATION DOSE DELIVERED:
--- NOTE | 2024-10-22 12:45 | DI.VRAD_ITS ---
PROCEDURE INFORMATION: Exam: XR Chest Exam date and time: 10/22/2024 12:30 PM Age: 44 years old Clinical indication: Condition or disease; Other: F/u ptx, suction is off TECHNIQUE: Imaging protocol: Radiologic exam of the chest. Views: 1 view. COMPARISON: CR XR PORTABLE CHEST AP 10/22/2024 8:18 AM FINDINGS: Tubes, catheters and devices: Stable small caliber chest tube terminates in the left upper quadrant. Lungs: Opacity in the left base may represent atelectasis or pneumonia.. Pleural spaces: Stable very small pneumothorax in the left apex. Heart/Mediastinum: Unremarkable. No cardiomegaly. Bones/joints: Unremarkable. Soft tissues: Stable subcutaneous emphysema on the left IMPRESSION: 1. Stable small caliber chest tube terminates in the left upper quadrant. 2. Opacity in the left base may represent atelectasis or pneumonia.. 3. Stable very small pneumothorax in the left apex. Dictated and Authenticated by: Orlando Saldaña MD. Ordering:NELSON Antunez MD
[2024-10-22] MEDS: traMADol 50 MG TAB PO (15:08)
[2024-10-22] MEDS: Lidocaine 5% Patch 1 PATCH TP (18:17)
[2024-10-22] MEDS: Enoxaparin 40 MG/0.4 ML SYR SC (18:30)
--- NOTE | 2024-10-23 | DI.RAD_ITS ---
Exam(s) XR CHEST 2V PA LATERAL EXAM: XR CHEST 2V PA LATERAL CLINICAL HISTORY: f/u PTX TECHNIQUE: 2D digital imaging was performed of the chest. Three images were obtained. PA and later al views were obtained. COMPARISON: CR,XR XR PORTABLE CHEST AP from 10/22/2024 FINDINGS: There has been interval removal of the left chest tube. MEDIASTINUM: Normal. HEART: Normal. PULMONARY VASCULATURE: Normal. LUNGS: There is atelectasis in the left lower lobe. The right lung is clear. PLEURAL SPACE: There has been a slight interval increase in size of the left pneumothorax. The pneum othorax is 2.9 cm from the lung apex compared to 0.9 on the prior examination. No right pneumothorax . No pleural effusion. BONE:Within normal limits for the patient's age. There is again seen a mildly displaced fracture inv olving the posterolateral aspect of the left 9th rib. OTHER FINDINGS:There is been slight interval increase in the amount of subcutaneous air along the lef t chest wall. IMPRESSION: 1. Interval removal of the left chest tube with interval increase in size of the small left apical pn eumothorax. 2. Stable left 9th rib fracture. 3. Slight interval increase in size of the subcutaneous emphysema along the left chest wall. DATA REPOSITORY: RADIATION DOSE DELIVERED:
--- NOTE | 2024-10-23 | DI.RAD_ITS ---
Exam(s) XR CHEST 2V PA LATERAL EXAM: XR CHEST 2V PA LATERAL CLINICAL HISTORY: left pneumothorax. TECHNIQUE: 2D digital imaging was performed. COMPARISON: CR XR PORTABLE CHEST AP POST LINE from 10/21/2024 CR,XR XR PORTABLE CHEST AP from 10/22/2024 CR,XR XR PORTABLE CHEST AP from 10/22/2024 CR XR CHEST 2V PA LATERAL from 10/23/2024 FINDINGS: 2 views: The thin caliber left chest tube is again noted to have been removed. The amount of subcutaneous emphysema over the left chest wall and left-sided neck is again noted to h ave increased from yesterday but remain stable when compared to earlier today. This makes it difficu lt to accurately assess for the presence of ipsilateral pneumothorax. However, the size of the left pneumothorax appears similar to earlier today, approximately 15-20 perc ent. Left 9th rib fracture again noted IMPRESSION: There is a 15-20 percent left-sided pneumothoraxwhich appears unchanged in size from earlier today. The amount of subcutaneous emphysema is again noted to have increased since removal of the left chest tube. DATA REPOSITORY: RADIATION DOSE DELIVERED:
[2024-10-23] MEDS: Albuterol 2.5 MG/3 ML INH SOLN VIAL UPD ×3 (00:15→12:27)
[2024-10-23 00:20] VITALS: PULSE 90; RESP 18; RESP 2; RESP 3; RESP 7; O2SAT 98
[2024-10-23] MEDS: Ketorolac 15 MG/ML VIAL IVP ×2 (05:35→12:04)
[2024-10-23] MEDS: Acetaminophen 500 MG TAB 1000 MG PO ×4 (05:36→23:15)
[2024-10-23 05:49] VITALS: PULSE 85; RESP 18; RESP 2; RESP 9; O2SAT 98
[2024-10-23 07:37] VITALS: BP 142/7; PULSE 74; RESP 18; TEMP 36; O2SAT 97
[2024-10-23] MEDS: Normal Saline Flush 10 ML SYR IVP ×3 (09:50→19:33)
[2024-10-23 12:34] VITALS: PULSE 93; RESP 9
--- NOTE | 2024-10-23 13:19 | W.NUTRFU ---
Date of service: 10/23/24 Time of Service: 13:20 Nutrition Note NOTE: pt admitted for rib fxr, pnemothorax. Weight stable, good intake but refused brakfast today due to wanting more rest. declines ons for support. no special nutrition needs upon intitial screen and interview with pt - deemed lower nutritional risk. Will continue to follow weight, labs, intake for changes. Time Spent in Nutritional Counseling and Treatment: 5 min
--- NOTE | 2024-10-23 15:02 | PGE_ITS ---
Date of Service Date of service: 10/23/24 Time of Service: 15:02 Assessment and Plan Assessment and plan (1) Fracture of rib of left side: Status: Acute Assessment and plan: Brandon is doing quite well with the incentive spirometer, but is still requiring some intravenous pain medications. I am encouraged him to try to wean off these through the course of tonight if he is able to. We could certainly add some gabapentin, but he is already on a fairly broad multimodal pain regimen, and I hate to complicate things with other medications especially for trying to work towards discharge, and affording some of these medications may be challenging. Would also like to see how the pain in the left sternocleidomastoid evolves over the next 24 hours. I suspect this is just secondary to some redistribution of the subcutaneous emphysema as the exam is overall very reassuring. Subjective Subjective Interval history since last seen: Brandon is done pretty well through the course of today, but is still requiring some intravenous pain medication to help with pulmonary toileting. He has particular increase in the pain with coughing. He also has a little bit of pain radiating up along the left sternocleidomastoid muscle today, which he did not notice previously. Exam Resp Other: Lung sounds are clear. There are equal bilaterally. There is a tiny bit of bony crepitus over the rib fracture site, and some subcutaneous emphysema along the left shoulder. Objective Last Vital Signs Temp 96.8 F L 10/23/24 07:37 Pulse 93 H 10/23/24 12:34 Resp 18 10/23/24 07:37 BP 142/7 H 10/23/24 07:37 Pulse Ox 97 10/23/24 07:37 PAWSS Have you Been Recently Intoxicated or Drunk Within the Last 30 days?: Yes Have you Ever Experienced Previous Episodes of Alcohol Withdrawal?: No Have you ever Experienced Withdrawal Seizures?: No Have you ever Experienced Delirium Tremens(DT)s?: No Have you ever undergone Alcohol Rehabilitation Treatment (i.e, inpt ot outpatient treatment programs)?: No Have you ever Experienced Blackouts?: No Have you ever Combined Alcohol with other Downers within the last 90 days?: No Have you ever Combined Alcohol with any other Substance of Abuse during the last 90 days?: No Positive Blood Alcohol level on Presentation? [PCS.BAL]: No Evidence of Increased Autonomic Activity (i.e. HR>120, tremor, sweating, agitation, nausea)?: No Result: 1 Time Spent with Patient Time Spent with Patient: <25 minutes Time was spent: preparing to see the patient(eg.review tests), referring, communicating with other health health care sanitary technician, indepentently interpreting results and counseling the patient
[2024-10-23 15:12] VITALS: BP 116/81; PULSE 84; RESP 20; TEMP 37.8; O2SAT 98
--- NOTE | 2024-10-23 16:14 | CMPROGNOTE_ITS ---
Date of service: 10/23/24 Time of Service: 16:14 Care Management Progress Note Progress Note Text Progress Note Text: Andrei was sitting up in bed when CM met with him. He stated that he is still having pain today. Per MD, he has pain in his neck today, and MD would like to keep him overnight to monitor this. Andrei met with [employer] via phone today, and they completed an application for insurance. stated that Andrei may be discharged with a new prescription for tramadol and skelaxin; CM found a [employer] coupon for [employer] for each- tramadol is about $6, and skelaxin is about $54. CM will continue to follow. Discharge Potential Discharge Needs: Surgical F/U Appt Anticipated Barriers to Discharge: None Identified Patient/Family Education Needs: Review discharge instructions, discuss Ask Me Three Transportation: Private vehicle Plan: Anticipate Jelani will return home once medically cleared. CM sent a referral to [employer] for insurance support, and will provide him with a financial assistance packet for [facility]. He will transport home via private vehicle by family. He will follow up with surgical services and his discharge plan of care. CM will continue to follow. Social Determinants of Health Screening Social Determinants of Health last assessed: 10/23/24 Will the Patient Participate in the Screening?: Yes Do you worry about having a steady place to live?: yes What is your living situation today?: I have housing today, but am worried about losing it Problems where you live: no known problems In the past 12 months, have you had to go without electric, gas, oil or water in your home?: no Have you or anyone in your house had to go without enough food to eat?: no Has lack of transportation kept you from medical appointments or from doing things needed for daily living?: no Has anyone in your life made you feel unsafe or unsupported?: no How hard is it for you to pay for the very basics like food, housing, medical care, and heating? Would you say it is:: Somewhat hard Do you want help finding or keeping work or a job?: I do not need or want help If for any reason you need help with day-to-day activities such as bathing, preparing meals, shopping, managing finances, etc., do you get the help you need?: I could use a little more help How often do you feel lonely or isolated from those around you?: Rarely Do you speak a language other than Luxembourger at home?: Yes Does the patient want assistance with any of the above?: No Health Related Social Needs Health related social needs: housing instability, housed, with risk of homelessness (Z59.811), problems related to housing/economic circumstances (Z59.89), problems with daily activities (Z73.9), feeling lonely/isolated (Z60.8) and education (Z55.6)
[2024-10-23] MEDS: Lidocaine 5% Patch 1 PATCH TP (18:27)
[2024-10-23] MEDS: Enoxaparin 40 MG/0.4 ML SYR SC (18:28)
[2024-10-23 19:37] VITALS: BP 139/88; PULSE 77; RESP 20; TEMP 37.9; O2SAT 98
[2024-10-24] MEDS: traMADol 50 MG TAB PO ×3 (06:30→23:05)
[2024-10-24] MEDS: Acetaminophen 500 MG TAB 1000 MG PO ×4 (06:30→23:04)
[2024-10-24] MEDS: Patch Removal LIDOCAINE 1 EACH TP (06:31)
[2024-10-24 07:45] VITALS: BP 138/88; PULSE 77; RESP 18; TEMP 36.2; O2SAT 100
--- NOTE | 2024-10-24 08:39 | PGE_ITS ---
Date of Service Date of service: 10/24/24 Time of Service: 08:39 Assessment and Plan Assessment and plan (1) Fracture of rib of left side: Status: Acute Assessment and plan: apin controlled d/c in am see d/c summary CM helping w/ payment for Rx (2) Pneumothorax: Status: Acute Assessment and plan: minimal/improved today (3) Emphysematous bleb of lung: Status: Acute (4) Smoker: Status: Acute (5) Subcutaneous emphysema: Status: Acute Assessment and plan: resolving Subjective Subjective Interval history since last seen: Patient is seen and examined: they are doing well. THey have : no headaches. No CP or SOB. no productive cough. no dysuria. no leg pain or swelling. pt c/o crepitus on neck/jaw and chest. pain controlled + BM Exam Narrative Exam Narrative: PHYSICAL EXAM GENERAL APPEARANCE: Alert, healthy appearance, oriented, x 3,? in no acute distress HYDRATION: Well hydrated HEAD, EYES, EARS, NECK, THROAT: Head is normocephalic, pupils equal, round, reactive to light and accommodation, ocular movement intact, sclera clear and no jaundice. ?Dentition intact. LUNGS: normal respiration/normal chest excursion. ?Clear to auscultation bilaterally. ?No wheeze. Minimal crepitus ?HEART: Regular rate and rhythm. no murmurs EXTREMITY: No edema or cyanosis.? no leg pain, redness, swelling.? ABDOMEN: soft and non-tender to palpation.? Normal bowel sounds.? ? bruise L flank Objective Last Vital Signs Temp 36.2 C L 10/24/24 07:45 Pulse 77 10/24/24 07:45 Resp 18 10/24/24 07:45 BP 138/88 10/24/24 07:45 Pulse Ox 100 10/24/24 07:45 PAWSS Have you Been Recently Intoxicated or Drunk Within the Last 30 days?: Yes Have you Ever Experienced Previous Episodes of Alcohol Withdrawal?: No Have you ever Experienced Withdrawal Seizures?: No Have you ever Experienced Delirium Tremens(DT)s?: No Have you ever undergone Alcohol Rehabilitation Treatment (i.e, inpt ot outpatient treatment programs)?: No Have you ever Experienced Blackouts?: No Have you ever Combined Alcohol with other Downers within the last 90 days?: No Have you ever Combined Alcohol with any other Substance of Abuse during the last 90 days?: No Positive Blood Alcohol level on Presentation? [PCS.BAL]: No Evidence of Increased Autonomic Activity (i.e. HR>120, tremor, sweating, agitation, nausea)?: No Result: 1 Time Spent with Patient Time Spent with Patient: <25 minutes Time was spent: preparing to see the patient(eg.review tests), obtaining and/or reviewing separately otained hiistory, ordering medications,tests, procedures, referring, communicating with other health patient care nursing assistant, indepentently interpreting results, counseling the patient, care coordination and other
[2024-10-24] MEDS: Normal Saline Flush 10 ML SYR IVP ×2 (08:48→20:34)
--- NOTE | 2024-10-24 08:48 | CMPROGNOTE_ITS ---
Date of service: 10/24/24 Time of Service: 08:48 Care Management Progress Note Progress Note Text Progress Note Text: Brandon was sitting up in bed when CM met with him. He is working with a CHW at [facility] and will be eligible for healthcare coverage Nov 18, and advises CM that it wont be retroactive to this hospital stay. CM provided him with a patient assistance form and RX savings card for [employer]. Discharge Potential Discharge Needs: PCP F/U Appt and Surgical F/U Appt Anticipated Barriers to Discharge: None Identified Patient/Family Education Needs: Review discharge instructions, discuss Ask Me Three Transportation: Private vehicle Plan: Anticipate Jelani will return home once medically cleared. CM sent a referral to [facility] for insurance support, and will provide him with a financial assistance packet for [place]. He will transport home via private vehicle by family. He will follow up with surgical services and his discharge plan of care. CM will continue to follow. Social Determinants of Health Screening Social Determinants of Health last assessed: 10/24/24 Will the Patient Participate in the Screening?: Yes Do you worry about having a steady place to live?: yes What is your living situation today?: I have housing today, but am worried about losing it Problems where you live: no known problems In the past 12 months, have you had to go without electric, gas, oil or water in your home?: no Have you or anyone in your house had to go without enough food to eat?: no Has lack of transportation kept you from medical appointments or from doing things needed for daily living?: no Has anyone in your life made you feel unsafe or unsupported?: no How hard is it for you to pay for the very basics like food, housing, medical care, and heating? Would you say it is:: Somewhat hard Do you want help finding or keeping work or a job?: I do not need or want help If for any reason you need help with day-to-day activities such as bathing, preparing meals, shopping, managing finances, etc., do you get the help you need?: I could use a little more help How often do you feel lonely or isolated from those around you?: Rarely Do you speak a language other than Slovak at home?: Yes Does the patient want assistance with any of the above?: No Health Related Social Needs Health related social needs: housing instability, housed, with risk of homelessness (Z59.811), problems related to housing/economic circumstances (Z59.89), problems with daily activities (Z73.9), feeling lonely/isolated (Z60.8) and education (Z55.6)
--- NOTE | 2024-10-24 10:25 | DI.RAD_ITS ---
Exam(s) XR CHEST 2V PA LATERAL EXAM: XR CHEST 2V PA LATERAL CLINICAL HISTORY: PTX TECHNIQUE: 2D digital imaging was performed of the chest. Three images were obtained. PA and later al views were obtained. COMPARISON: CR XR CHEST 2V PA LATERAL from 10/23/2024 FINDINGS: MEDIASTINUM: Normal. HEART: Normal. PULMONARY VASCULATURE: Normal. LUNGS: There is mild atelectasis seen in the left lung base. The right lung is clear. PLEURAL SPACE: The left pneumothorax has decreased in size measuring 2 cm from the lung apex compared to 2.9 on the prior examination. No right pneumothorax. No pleural effusion. BONE:Within normal limits for the patient's age. There is no change in appearance of the displaced l eft 9th rib fracture. OTHER FINDINGS:There is persistent subcutaneous emphysema along the left chest wall. IMPRESSION: Interval decrease in size of the left pneumothorax which remains very small. DATA REPOSITORY: RADIATION DOSE DELIVERED:
[2024-10-24 13:32] VITALS: O2SAT 98
--- NOTE | 2024-10-24 15:00 | W.PM.DS.N ---
Date of service: 10/25/24 Time of Service: 12:00 DS: Diagnosis Discharge Diagnosis (1) Fracture of rib of left side: Status: Acute (2) Pneumothorax: Status: Acute (3) Emphysematous bleb of lung: Status: Acute (4) Smoker: Status: Acute Discharge Plan Disposition Patient Disposition: Home Condition: Improving Discharge Details Reason For Visit: Pneumothorax and rib fracture Admit Date/Time: 10/21/24 16:49 Admit Provider: Harmony Garcia Attending Provider: Harmony Garcia Primary Care Provider: None,None Hospital Course Hospital Course: see addednum Home Meds and New Rx's Prescriptions: New nicotine 14 mg/24 hr Patch 24 Hour 14 mg transdermal DAILY Qty: 14 0RF tramadol 50 mg Tablet 50 mg PO Q6H PRN PRN (Reason: Pain) Qty: 14 0RF lidocaine 5 % Adhesive Patch,Medicated 1 patch topical Q24H Qty: 30 0RF metaxalone 800 mg Tablet 800 mg PO QID Qty: 60 0RF No Action No Known Home Meds Discharge Instructions Additional Instructions: Keep an ice bag on the chest and ribs. 20 minutes on and 20 minutes off. Ice keeps the swelling down and swelling causes pain. Make sure you wrap the ice pack in a towel and don't apply directly to the skin. -No driving for 3 days or of you are taking narcotic pain medications. - F/u in Surgery clinic 10/30 at 2pm [facility] Surgery Clinic: [phone] Counts include 234 beds at the [facility] [address]. [facility]. -Please go to radiology a at 1:30 PM on 10/30(prior to your clinic appointment ) to have a repeat chest x-ray -Regular diet -no straining to move bowels -pain meds are very constipating: if you do not move your bowels daily take a dose of OTC Miralax -It is ok to shower. - You may find that your appetite is smaller after being in the hospital. Eat 3-6 small meals throughout the day. It is important to drink lots of water after surgery, 6-10 glasses a day. 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 -We do want you up walking, at least 5-6 times per day. This is very important to prevent pneumonia and blood clots. You can climb stairs, take them slowly. -No lifting over 5 pounds for at least 2 weeks -You may find that you are very tired after being in the hospital- this is normal. -please do not smoke for a minimum of 72 hours after surgery. ? Pain Management Protocol -Tylenol 1000mg every 6 hours.? Tylenol is an anti-inflammatory. -Ibuprofen 600mg every 6hrs prn pain.? Do not take aspirin while taking this medication.? Take this medication w/ food. Do not take on an empty stomach. -Use ice.? This also helps to keep swelling down *?It is important to take these medications to keep the swelling down.? Swelling is what causes pain. -lidocaine patches.?? Change patch every 24 hrs. --Skelaxin: muscle relaxant you can take as needed for pain >7. -? Do NOT strain to move your bowels!? This is like lifting 50#'s.?Mirlax daily to prevent constipation. All these medications work in concert together?to produce a symphony of pain control.? You need to take them as a TOGETHER in order to control the pain,?NOT just pick and choose which one you want to take.? There is not one thing that completely controls pain.? AND there are multiple factors that produce the sensation of pain- so no one thing is going to control it. So in order to have a symphony of pain control- you need to use ALL of them together. ? ? Activity:: See above Equipment/Supplies:: No Equipment Needed Diet:: As Tolerated DS: Summary Time Spent with Patient providing and/or coordinating discharge services: Less than 30 minutes Status at Discharge Functional status at discharge: independent ambulation Overall status at discharge: patient is progressing back to baseline Mental Status: mental status grossly normal Speech and Movement: speech and movement normal Mood: congruent mood Affect: normal affect Quality:SDOH Health Related Social Needs: Health related social needs housing instability, housed, with risk of homelessness (Z59.811), problems related to housing/economic circumstances (Z59.89), problems with daily activities (Z73.9), feeling lonely/isolated (Z60.8), education (Z55.6) Exam Psych Mental Status: mental status grossly normal Speech and Movement: speech and movement normal Mood: congruent mood Affect: normal affect DS: Data Vitals/I&O Vitals and I&O: Vital Signs Temperature 36.2 C L 10/24/24 07:45 Temperature Source Tympanic 10/24/24 07:45 Pulse 77 10/24/24 07:45 Pulse 74 10/21/24 17:40 Respiratory Rate 18 10/24/24 07:45 Respiratory Effort Normal 10/21/24 18:01 Respiratory Depth Normal 10/21/24 18:01 Respiratory Pattern Normal 10/21/24 18:01 Blood Pressure 138/88 10/24/24 07:45 Blood Pressure Mean 102 10/21/24 17:30 Pulse Oximetry 98 10/24/24 13:32 Oxygen Delivery Method Room Air 10/24/24 13:32 Oxygen Flow Rate 0 10/24/24 13:32 Pain Level 6 10/24/24 13:43 Comment pT reports moderate pain - will inform RN 10/22/24 14:59 Intake & Output 10/23/24 10/24/24 10/24/24 23:59 11:59 23:59 Intake Total 370 / 670 Balance 370 / 170 Intake: IV Oral 360 / 660 Other: Urine Color Yellow Yellow Urine Appearance Clear Clear Urine Odor Normal Comment ind with urination Pt reported having voided into the toilet a couple of times earlier today. Stool Size Moderate Stool Characteristics Formed PFSH All Active Problems Emphysematous bleb of lung (Acute) Daily consumption of alcohol (Acute) Marijuana use, continuous (Acute) Pneumothorax (Acute) Fracture of rib of left side (Acute) Smoker (Acute) Medical History (Updated 10/21/24 @ 16:46 by Harmony Garcia DO) No significant past medical history Surgical History (Updated 01/14/20 @ 16:32 by Jayne Leblanc DO) No significant past surgical history Social History Smoking/Tobacco Use Status: Current every day Tobacco Type: cigarettes Smoking risk assessment performed?: Yes Alcohol Intake: current Alcohol Intake frequency: 3 or more drinks per day Alcohol type: beer Drug use: Daily Substance use type: marijuana Housing: apartment Do you feel safe at home: Yes Time Spent with Patient Time Spent with Patient: <45 minutes Time was spent: preparing to see the patient(eg.review tests), obtaining and/or reviewing separately otained hiistory, ordering medications,tests, procedures, referring, communicating with other health home health care social worker, indepentently interpreting results, counseling the patient, care coordination and other
[2024-10-24 15:30] VITALS: BP 122/85; PULSE 78; RESP 18; TEMP 37.3; O2SAT 99
--- NOTE | 2024-10-24 15:37 | PDOC.CMDIS ---
Care Management Discharge Plan Reason for Hospitalization: Pneumothorax, rib fracture Discharge Plan: Jelani will discharge home via private vehicle with family. He will follow up with Surgical on 10/30/24 as scheduled. Recommend patient establish care with a local PCP of choice and follow up with CHW at [facility] about insurance barriers. No services are ordered. Patient/Family Education Needs: Review discharge instructions, limitations, medications and plan to follow up with Surgical. Discuss ask me three. [facility] Health Related Social Needs: Health related social needs housing instability, housed, with risk of homelessness (Z59.811), problems related to housing/economic circumstances (Z59.89), problems with daily activities (Z73.9), feeling lonely/isolated (Z60.8), education (Z55.6)
[2024-10-24] MEDS: Lidocaine 5% Patch 1 PATCH TP (17:50)
[2024-10-24] MEDS: Enoxaparin 40 MG/0.4 ML SYR SC (17:50)
[2024-10-24 20:25] VITALS: BP 129/84; PULSE 85; RESP 18; TEMP 37; O2SAT 98
[2024-10-25] MEDS: Acetaminophen 500 MG TAB 1000 MG PO (06:22)
[2024-10-25] MEDS: Patch Removal LIDOCAINE 1 EACH TP (06:23)
[2024-10-25 07:53] VITALS: BP 124/82; PULSE 70; RESP 18; TEMP 36.7; O2SAT 99
--- NOTE | 2024-10-25 08:55 | PDOC.CMPRO ---
Date of service: 10/25/24 Time of Service: 08:56 Social Determinants of Health Screening Social Determinants of Health last assessed: 10/25/24 Will the Patient Participate in the Screening?: Yes Do you worry about having a steady place to live?: yes What is your living situation today?: I have housing today, but am worried about losing it Problems where you live: no known problems In the past 12 months, have you had to go without electric, gas, oil or water in your home?: no Have you or anyone in your house had to go without enough food to eat?: no Has lack of transportation kept you from medical appointments or from doing things needed for daily living?: no Has anyone in your life made you feel unsafe or unsupported?: no How hard is it for you to pay for the very basics like food, housing, medical care, and heating? Would you say it is:: Somewhat hard Do you want help finding or keeping work or a job?: I do not need or want help If for any reason you need help with day-to-day activities such as bathing, preparing meals, shopping, managing finances, etc., do you get the help you need?: I could use a little more help How often do you feel lonely or isolated from those around you?: Rarely Do you speak a language other than Indian at home?: Yes Does the patient want assistance with any of the above?: No Health Related Social Needs Health related social needs: housing instability, housed, with risk of homelessness (Z59.811), problems related to housing/economic circumstances (Z59.89), problems with daily activities (Z73.9), feeling lonely/isolated (Z60.8) and education (Z55.6)
[2024-10-25] MEDS: Normal Saline Flush 10 ML SYR IVP (09:31)
[2024-10-25] MEDS: Ketorolac 15 MG/ML VIAL IVP (09:38)
== END 2024-10-31 15:18 | disposition home or self-care (01) | DRG 200 ==
LOC: ER 14:31 → MS 10-22 09:44
PROVIDERS: Admitting Provider Surgery; Emergency Provider Physician Assistant; Visit Provider Surgery
DX: S27.0XXA Traumatic pneumothorax, initial encounter (principal); S22.32XA Fracture of one rib, left side, initial encounter for closed fracture; T79.7XXA Traumatic subcutaneous emphysema, initial encounter; J43.0 Unilateral pulmonary emphysema [MacLeod's syndrome]; F17.210 Nicotine dependence, cigarettes, uncomplicated; F10.90 Alcohol use, unspecified, uncomplicated; W22.09XA Striking against other stationary object, initial encounter; F12.90 Cannabis use, unspecified, uncomplicated
CPT/HCPCS: 32551; 32650; 00123; 36415; 71045; 71250; 93005; 96374; 99285; J1650; 70490; 71046; 93010; 94640; 94760; J0131; J0690; J1100; J1171; J1885; J2003; J2250; J2270; J2371; J2405; J2704; J3490; J7613

== ENCOUNTER 2024-10-26 22:05 | Inpatient (IN) | payer MEDICAID, SELFPAY ==
[2024-10-26] VITALS (18 sets, daily range): BP systolic 121–156; BP diastolic 63–95; PULSE 79–98; RESP 9–22; TEMP 36.9; O2SAT 94–98
--- NOTE | 2024-10-26 22:00 | RT.EKG_ITS ---
APPROVED REPORT Exam: Resting ECG Reason for Exam: chest pain' Patient Location: E HR:82 bpm ECG Measurements Heart Rate 82 AXIS [place] 157 P 29 QRSd 94 QRS 67 QT 366 T 61 QTc 427 Conclusion Sinus rhythm...normal P axis, V-rate 60- [address] segment or T wave abnormalities to suggest occlusive [place]
--- NOTE | 2024-10-26 22:15 | DI.CT_ITS ---
Exam(s) CT NECK WO EXAM: CT NECK WO CLINICAL HISTORY: SQ emphysema, s/p pigtail 4 pneumo (removed). TECHNIQUE: Imaging Protocol: Axial computed tomography images with coronal and sagittal reformatted images were created and reviewed. CONTRAST MATERIAL: This is a noncontrast examination. COMPARISON: CT CT CHEST WO from 10/21/2024 FINDINGS: Orbits and orbital soft tissues: Within normal limits. Visualized paranasal sinuses: Within normal limits. Nasopharynx: Within normal limits. Oropharynx: Within normal limits. Hypopharynx: Within normal limits. Larynx: Within normal limits. Retropharyngeal space: Within normal limits. Parotids/submandibular: Within normal limits. Thyroid gland: There is a peripherally calcified 1.6 cm hypodense nodule in the right lobe of the th yroid gland. Nonemergent thyroid ultrasound should be considered for further evaluation. Lymphadenopathy: There is scattered lymph nodes seen along the level one to level three all measurin g less than 8 mm in short axis diameter which are physiologic in nature. Trachea: Within normal limits. Lung apices: There is a left-sided pneumothorax. Please refer to the CT scan of the chest for compl ete details. Blebs are seen in the right upper lobe. Bones: Within normal limits for the patient's age. Carotids/Jugular: Within normal limits. Soft tissues: Extensive subcutaneous emphysema and pneumomediastinum is seen in the neck and chest, predominantly involving the left. IMPRESSION: 1. Left apical pneumothorax. Please refer to the CT scan of the chest for complete details. 2. Extensive subcutaneous emphysema and pneumomediastinum. RADIATION DOSE DELIVERED: 860.05mGy.cm Total DLP 860.05mGy.cm Total DLP DATA REPOSITORY: All CT scans at this facility are submitted to the National Radiology Data Registry (NRDR) Dose Index Registry (DIR) with the [employer] (A[employer]). RADIATION OPTIMIZATION: All CT scans at this facility use at least one of these dose optimization te chniques: automated exposure control; mA and/or kV adjustment per patient size (includes targeted exa ms where dose is matched to clinical indication); or iterative reconstruction.
--- NOTE | 2024-10-26 22:15 | DI.CT_ITS ---
Exam(s) CT CHEST WO EXAM: CT CHEST WO CLINICAL HISTORY: SQ emphysema, s/p pigtail 4 pneumo (removed). TECHNIQUE: Imaging protocol: Axial computed tomography images were obtained and coronal and sagittal reformatted images were created and reviewed. Lung Computer Aided Detection (CAD) was utilized. COMPARISON: CT CT CHEST WO from 10/21/2024 CR XR CHEST 2V PA LATERAL from 10/24/[address] NECK WO from 10/26/2024 FINDINGS: Tracheobronchial tree: Patent where visualized. No bronchiectasis is present. Pulmonary parenchyma: There are areas of atelectasis in the left upper lobe, lingula and lower lobe. No focal consolidating infiltrates are seen in the right lung. No architectural distortion. Mediastinum and Alia: No dominant adenopathy or fluid collection. The esophagus is unremarkable.There is pneumomediastinum present. Thyroid gland: Unremarkable. Pleura: There is a tiny left pleural effusion. No right pleural effusion. There is no right pneumot horax. There is a moderate size left pneumothorax. The pneumothorax is larger than the initial pneu mothorax on the CT scan dated 10/21/2024. Heart: The heart is not dilated. No coronary artery calcifications are seen. No pericardial effusion. Aorta: Thoracic aorta non-dilated. Upper abdomen: Diverticula seen in the colon. Lymph nodes: Within normal limits. Soft tissues: There is extensive subcutaneous emphysema. It predominantly involves the left neck and left chest wall. There is also extensive subcutaneous edema seen in the abdominal wall bilaterally. Bones:Within normal limits for the patient's age. Minimally displaced fracture of the posterolateral aspect of the left 9th rib. IMPRESSION: 1. Moderate sized left pneumothorax. 2. Extensive subcutaneous emphysema and pneumomediastinum. 3. Atelectasis in the left lung. Tiny left pleural effusion. 4. Mildly displaced left 9th rib fracture. RADIATION DOSE DELIVERED: 860.05mGy.cm Total DLP 860.05mGy.cm Total DLP DATA REPOSITORY: All CT scans at this facility are submitted to the National Radiology Data Registry (NRDR) Dose Index Registry (DIR) with the [employer] (ACR). RADIATION OPTIMIZATION: All CT scans at this facility use at least one of these dose optimization te chniques: automated exposure control; mA and/or kV adjustment per patient size (includes targeted exa ms where dose is matched to clinical indication); or iterative reconstruction.
--- NOTE | 2024-10-26 22:36 | ED.GENADUL_ITS ---
Discharge Plan Discharge Details Chief Complaint: GenMedical Admit Date/Time: 10/26/24 23:57 Admit Provider: Harmony Garcia Attending Provider: Harmony Garcia Primary Care Provider: None,None ED Provider: Olga Yañez Discharge Data Discharge Date/Time-TO BE ENTERED AT DEPARTURE: 10/27/24 00:44 HPI General Mode of arrival: ambulatory . Date/Time Provider Initiated Documentation: 10/26/24 22:06 . Limitations to Documentation: no limitations . Information obtained by: patient . HPI Narrative: 44yo M presenting with concern for SQ emphysema. On 10/21 fell onto counter, found to have L pneumothorax and SQ emphysema, was admitted to surgery service and had pigtail placed. Discharged yesterday. Patient reports that at time of discharge he did still have some pain and SQ emphysema from his left neck down to his left lower abdomen. Since then pain has increased and sensation as spread across lower abdomen and up the right side to his right chest. Also has a sensation of discomfort when swallowing. Pain has been adequately controlled; last took tramadol around 5pm, declines any pain medication now. States the pain is not bad unless the areas are being palpated. No shortness of breath. He is otherwise in his usual state of health with no fevers, chills, rash, nausea, vomiting, or other concerns. Related Data Home Medications ?Medication ?Instructions ?Recorded ?Confirmed Unknown [No Known Home Meds] 10/21/24 10/26/24 Allergies Allergy/AdvReac Type Severity Reaction Status Date / Time Penicillins Allergy Unknown Hives Unverified 10/26/24 22:13 General Stated Complaint: GenMedical CHRISTAL: 3 Review of Systems Narrative: see HPI Exam Narrative Exam Narrative: General: Alert, well appearing, well nourished, in no acute distress. TTP from left occiput, left neck, left chest & abd, suprapubic region, right abd, and right chest. No palpable crepitus (however pt states he can feel crepitus when I am palpating) Head: Normocephalic, atraumatic Neck: Trachea midline, ?Neck supple. ENT: ?MMM.? No oropharygeal lesions or exudate. Cardiac: ?RRR, no murmurs appreciated Resp: No respiratory distress. Diffuse crackles posterior lung lennon. Abd: ?Soft, non-distended, Skin: Echymosis to left flank Extremities: ?No deformities.? No peripheral edema. Neurologic: GCS 15. ? Moves all extremities freely against gravity Course Vital Signs Vital signs: Vital Signs Temperature 36.9 C 10/26/24 22:07 Pulse 98 H 10/26/24 22:07 Respiratory Rate 22 10/26/24 22:07 Blood Pressure 121/63 10/26/24 22:07 Pulse Oximetry 98 10/26/24 22:07 Temperature 36.9 C 10/26/24 22:07 Temperature Source Temporal Artery Scan 10/26/24 22:07 Pulse 98 H 10/26/24 22:07 Respiratory Rate 18 10/26/24 22:17 Respiratory Effort Normal, Non-Labored 10/26/24 22:17 Respiratory Depth Normal 10/26/24 22:17 Respiratory Pattern Normal 10/26/24 22:17 Blood Pressure 121/63 10/26/24 22:07 Blood Pressure Position Sitting 10/26/24 22:07 Pulse Oximetry 98 10/26/24 22:07 Oxygen Delivery Method Room Air 10/26/24 22:07 Oxygen Flow Rate 0 10/26/24 22:07 Pain Level 3 10/26/24 22:07 Medical Decision Making 44yo M presenting with concern for SQ emphysema. Recent admission to surgery service for pneumothorax with pigtail placed (since removed); discharged yesterday. Since discharge worsening and spreading sensation of crepitus and pain, currently extending from his left neck down his left trunk, across lower abdomen, and up his right trunk. No respiratory distress. Does have a sensation of discomfort with swallowing; not pain, is able to swallow without difficulty. Slightly tachycardiac after ambulating into triage, vital signs otherwise reassuring. HR improved to 70's without intervention. On exam he is in no distress, breathing comfortably. Declines pain medication. Audible crepitus with auscultation; I am unable to palpate an crepitus but patient does report that he can feel the crepitus with my palpation, extending from his left occiput, down neck/chest/abd, across lower abd, and up right abd and chest. Will get non-con CT chest and neck. CT's independently reviewed; extensive SQ emphysema, moderate left sided pneumothorax. Compared to initial CT on prior presentation, pneumothorax is significantly larger. On reassessment patient continues to be well appearing in no respiratory distress. He does report pain is becoming more bothersome; will give 2mg IV morphine. Discussed with Dr. Garcia; pt accepted for admission. Requesting bridging orders be placed including NPO, IV fluids, morphine for pain which was done. No indication for emergent chest tube/pigtail at this time; will defer ultimate plan to accepting surgeon. Patient transferred to the floor. Imaging Data Radiologic Study: Imaging: CT Scan Radiologist's impression: Chest: IMPRESSION: 1. Left-sided pneumothorax as detailed above. 2. Extensive subcutaneous emphysema involving the chest wall. 3. Pneumomediastinum. 4. F racture of the left 9th posterior rib. Neck: IMPRESSION: 1. The known left pneumothorax is partially imaged, as imaged appears decreased in volume. 2. Left chest wall emphysema and known mediastinum extending into neck and skull base emphysema as above. Quality:SDOH Health Related Social Needs: Health related social needs housing instability, house d, with risk of homelessness (Z59.811), problems related to housing/economic circumstances (Z59.89), problems with daily activities (Z73.9), feeling lonely/isolated (Z60.8), education (Z55.6) PFSH All Active Problems Subcutaneous emphysema (Acute) Emphysematous bleb of lung (Acute) Daily consumption of alcohol (Acute) Marijuana use, continuous (Acute) Pneumothorax (Acute) Fracture of rib of left side (Acute) Smoker (Acute) Medical History (Updated 10/26/24 @ 00:08 by CINDI HARRIS) No significant past medical history Surgical History (Updated 01/14/20 @ 16:32 by Jayne Leblanc DO) No significant past surgical history Social History Smoking/Tobacco Use Status: Current every day Tobacco Type: cigarettes Smoking risk assessment performed?: Yes Alcohol Intake: current Alcohol Intake frequency: 3 or more drinks per day Alcohol type: beer Drug use: Daily Substance use type: marijuana Housing: apartment Do you feel safe at home: Yes Do you feel safe in your relationship?: Yes
--- NOTE | 2024-10-26 23:26 | DI.VRAD_ITS ---
PROCEDURE INFORMATION: Exam: CT Chest Without Contrast; Diagnostic Exam date and time: 10/26/2024 10:37 PM Age: 44 years old Clinical indication: Other: Sq emphysema, S/P pigtail 4 pneumo (removed); Additional info: Sq emphysema, S/P pigtail 4 pneumo (removed) TECHNIQUE: Imaging protocol: Diagnostic computed tomography of the chest without contrast. 3D rendering (Not supervised by radiologist): MIP and/or 3D reconstructed images were created by the technologist. COMPARISON: CT CHEST WO 10/21/2024 12:48 PM FINDINGS: Lungs: Left lower lobe discoid atelectatic changes. Pleural spaces: Left-sided pneumothorax measuring a proximally 30%. Heart: Unremarkable. No cardiomegaly. No pericardial effusion. Mediastinal space: Pneumomediastinum. Lymph nodes: Unremarkable. No enlarged lymph nodes. Vasculature: Unremarkable. No aortic aneurysm. Bones/joints: Fracture of the left 9th posterior rib. Soft tissues: Extensive chest wall emphysema identified. IMPRESSION: 1. Left-sided pneumothorax as detailed above. 2. Extensive subcutaneous emphysema involving the chest wall. 3. Pneumomediastinum. 4. Fracture of the left 9th posterior rib. Dictated and Authenticated by: Patrick Ghotra MD. Ordering:FRANNY Espinoza MD
--- NOTE | 2024-10-26 23:52 | DI.VRAD_ITS ---
PROCEDURE INFORMATION: Exam: CT Neck Without Contrast Exam date and time: 10/26/2024 10:37 PM Age: 44 years old Clinical indication: Other: Sq emphysema, S/P pigtail 4 pneumo (removed); Additional info: Sq emphysema, S/P pigtail 4 pneumo (removed) TECHNIQUE: Imaging protocol: Computed tomography of the neck without contrast. COMPARISON: CT CHEST WO 10/26/2024 10:37 PM FINDINGS: Paranasal sinuses: Trace mucosal thickening in paranasal sinuses. Salivary glands: Normal. Glands are normal in size. Teeth: Periodontal disease. Pharynx: Right-sided tonsillolith. No significant tonsillar inflammation on noncontrast imaging. Prevertebral and retropharyngeal spaces: Unremarkable. Larynx: Normal epiglottis. Thyroid: Peripherally calcified right thyroid nodule. Follow-up as per institutional protocol. Trachea: Visualized trachea is unremarkable. Lungs: Unremarkable as visualized. Pleural spaces: Left pneumothorax, as imaged appears decreased in volume since recent imaging of the thorax. Trace in volume in the left lung apex. Esophagus: Visualized esophagus demonstrates normal noncontrast morphology without evidence of gross inflammation or disruption. Lymph nodes: No lymphadenopathy. Bones/joints: Generalized emphysema throughout the neck [id number], extending into posterior cervical triangle, carotid space, pneumomediastinum extends into the posterior and middle compartments of the neck, moderate in volume, swollen volume gas extends into skull base soft tissues. No acute fracture or subluxation. Soft tissues: No significant soft tissue swelling on noncontrast imaging. IMPRESSION: 1. The known left pneumothorax is partially imaged, as imaged appears decreased in volume. 2. Left chest wall emphysema and known mediastinum extending into neck and skull base emphysema as above. Dictated and Authenticated by: Grecia Choi MD. Ordering:FRANNY Espinoza MD
[2024-10-27] VITALS (43 sets, daily range): BP systolic 101–150; BP diastolic 61–95; PULSE 66–108; RESP 9–24; TEMP 36.8–37.6; O2SAT 94–99; BMI 25.7
[2024-10-27] MEDS: MORPHine 2 MG/ML SYR IVP ×5 (00:15→05:44)
[2024-10-27] MEDS: Normal Saline 1,000 ML 150 ML IV ×2 (00:16→06:00)
[2024-10-27] MEDS: Ketorolac 30 MG/ML VIAL IVP ×2 (08:39→22:35)
--- NOTE | 2024-10-27 09:11 | PDOC.CMIN ---
Date of service: 10/27/24 Time of Service: 09:11 Care Management Initial Assmt Initial Assessment Reason for Hospitalization: pneumothorax Functional Status/Living Situation Patient Presentation: Brandon was lying in bed with the HOB elevated when CM met with him. He reports that he hasn't slept for 27 hours because he is unable to lay flat or on his side. Jelani shared that he developed pain, swelling and a crunching sensation in his abdomen and left arm after his recent discharge. Brandon is currently in self pay status; he is trying to get insurance and financial assistance through the hospital. Has been in contact with [facility] at [facility]. Town of Residence: [facility] Resides with: Alone Significant Other/Family: Local Natural Supports: [employer] Employment Status: Employed (Self employed, construction) Instrumental Activities of Daily Living (ADLs): Independent Medications Medication Management: Issues/Barriers (Cost concerns, Insurance is expected to be active on 11/18/24. ) with Cost Physical Functioning/Mobility Assistive Device: None Advance Directives Advance Directives: Do you have an Advance Directive: N 08/14/19 23:47 AD On File at [facility]: N 08/14/19 23:47 Date Asked 10/26/24 10/26/24 22:20 AD Date Reviewed COLST On File at [facility] COLST Date Scanned Code Status Resuscitation Status Full Code Portal Pt does not currently have a portal and education provided: Yes Insurance Coverage/Financial Issues Insurance: Self Financial Issues: Working on financial assistance Care Team Visit Care Team Role Provider Type None None Primary Care Provider NON-[facility] STAFF PHYSICIAN Olga Yañez MD Emergency Provider [facility] STAFF PHYSICIAN Harmony Garcia, DO Admit Provider OSTEOPATHIC DOCTOR Attending Provider Discharge Potential Discharge Needs: Surgical F/U Appt Anticipated Barriers to Discharge: Medical Status Patient/Family Education Needs: Review discharge instructions, discuss Ask Me Three Plan: Surgical intervention is indication, see surgical documentation. Anticipate pt will return home once medically cleared. He will transport home via private vehicle by family, although RCT will be considered if he is unable to secure a ride at the time of D/C. Will need outpatient follow up with surgical services and his discharge plan of care. T-doc follow up will be offered, until he is able to establish care with a PCP of choice. Follow up with [facility] at [facility], PRN. CM will continue to follow. Social Determinants of Health Screening Social Determinants of Health last assessed: 10/27/24 Will the Patient Participate in the Screening?: Yes Do you worry about having a steady place to live?: no Problems where you live: no known problems In the past 12 months, have you had to go without electric, gas, oil or water in your home?: no Have you or anyone in your house had to go without enough food to eat?: no Has lack of transportation kept you from medical appointments or from doing things needed for daily living?: no Has anyone in your life made you feel unsafe or unsupported?: no How hard is it for you to pay for the very basics like food, housing, medical care, and heating? Would you say it is:: Not hard at all Do you want help finding or keeping work or a job?: I do not need or want help If for any reason you need help with day-to-day activities such as bathing, preparing meals, shopping, managing finances, etc., do you get the help you need?: I don?t need any help How often do you feel lonely or isolated from those around you?: Never Do you speak a language other than [place] at home?: No Does the patient want assistance with any of the above?: No PFSH All Active Problems Subcutaneous emphysema (Acute) Emphysematous bleb of lung (Acute) Daily consumption of alcohol (Acute) Marijuana use, continuous (Acute) Pneumothorax (Acute) Fracture of rib of left side (Acute) Smoker (Acute) Medical History (Updated 10/26/24 @ 00:08 by CINDI HARRIS) No significant past medical history Surgical History (Updated 01/14/20 @ 16:32 by Jayne Leblanc DO) No significant past surgical history Social History Smoking/Tobacco Use Status: Current every day Tobacco Type: cigarettes Smoking risk assessment performed?: Yes Alcohol Intake: current Alcohol Intake frequency: 3 or more drinks per day Alcohol type: beer Drug use: Daily Substance use type: marijuana Housing: other Do you feel safe at home: Yes Do you feel safe in your relationship?: Yes Readmission Within the Past 30 Days Yes or No: Yes Date of First Admission Date of 1st Admission: 10/21/24 Date of this Admission Date of Admission: 10/26/24 This admission was: Through ED Office Visit Since 1st Admission Have you seen your PCP in the office since discharge?: No Had an appointment Been Scheduled?: No Speicalist Appointments Have you seen any other specialist since your 1st Admission?: No Date you saw the Specialist: 10/30/24 Specialist Seen: Surgical follow up with scheduled prior to discharge I. Interview patient and/or Family Difficulty reaching your doctor or getting an office appt?: No Have you had trouble purchasing/ or taking medication?: No How do you take your medications and set up your pills?: self Have you had trouble with getting meals at home?: No Did your physician tell you to come in?: Yes (Dr. Garcia) Assessment for Readmission Summary of readmission circumstances, based upon interviews: Kathleen discharged home after treatment of a rib fracture and pneumothorax. A short time later he started having chest and throat pain and went to the ER after speaking with Dr. Garcia. Treatment for a visceral air leak is being concidered, per surgical documentation.
--- NOTE | 2024-10-27 11:03 | W.ANESPRE ---
General Info Date of Service Date Performed: 10/27/24 Height: 6 ft 2 in Weight: 90.718 kg Body Mass Index (BMI): 25.7 Surgical Procedure: Operation Date: 10/27/24 13:10 Proposed Procedure Side Surgeon p Video Assisted Thoracoscopy Left Kamaljit Calixto MD Meds Allergies and Home Medications Allergies Allergy/AdvReac Type Severity Reaction Status Date / Time Penicillins Allergy Unknown Hives Unverified 10/26/24 22:13 Home Medication ?Medication ?Instructions ?Recorded Unknown [No Known Home Meds] 10/21/24 Current Visit Medications: Current Medications Generic Name Dose Route Start Last Admin Trade Name Freq PRN Reason Stop Dose Admin Sodium Chloride 1,000 mls @ 150 mls/hr 10/26/24 23:45 10/27/24 06:00 Saline 1000ml Bag IV 150 mls/hr INFUSION SEAN Administration IV Miscellaneous Supplies 1 each 10/26/24 23:45 Iv Access-Emergency Dept IV DIRECTED SEAN Morphine Sulfate 2 mg 10/26/24 23:56 10/27/24 05:44 Morphine 2 Mg/Ml Syr IVP 2 mg Q1H PRN PRN Administration Sodium Chloride 0 ml 10/26/24 23:56 Normal Saline Flush 10 Ml Syr IVP PRN PRN Sodium Chloride 0 ml 10/27/24 08:30 10/27/24 07:53 Normal Saline Flush 10 Ml Syr IVP Not Given BID SEAN Sodium Chloride 0 ml 10/26/24 23:56 Normal Saline 10 Ml Vial IJ DIRECTED PRN PFSH Active Problems Active Problems: Problem Status Onset Code Subcutaneous emphysema Acute T79.7XXA Emphysematous bleb of lung Acute J43.9 Daily consumption of alcohol Acute Z78.9 Marijuana use, continuous Acute F12.90 Pneumothorax Acute J93.9 Fracture of rib of left side Acute S22.32XA Smoker Acute F17.200 Medical History Medical History (Updated 10/26/24 @ 00:08 by CINDI HARRIS) No significant past medical history Surgical History Surgical History (Updated 01/14/20 @ 16:32 by Jayne Leblanc DO) No significant past surgical history Tobacco Smoking/Tobacco Use Status: Current every day Tobacco Type: cigarettes Alcohol Alcohol Intake: current Alcohol intake frequency: 3 or more drinks per day Alcohol type: beer Substance Use Substance use: Daily Substance use type: marijuana Vital Signs and Lab Results Vital Signs Most Recent Vital Signs in EMR: Most Recent Vital Signs Temp Pulse Resp BP Pulse Ox 37.3 C 86 16 115/76 96 10/27/24 07:26 10/27/24 07:26 10/27/24 07:26 10/27/24 07:26 10/27/24 07:26 Lab Results Blood Type / Crossmatch: No Data to Display Complete Blood Count: No Data to Display Complete Metabolic Panel: No Data to Display Liver Function Panel: No Data to Display Coagulation Panel: No Data to Display Cardiac Panel: No Data to Display Arterial Blood Gas: No Data to Display Venous Blood Gas: No Data to Display Pancreas Panel: No Data to Display Thyroid Panel: No Data to Display Infectious Disease: No Data to Display Blood Cultures: No Data to Display Toxicology Panel: No Data to Display Imaging and Studies Imaging and Studies Study information below may be from another EMR and interpreted by another provider. Please see original notes in EMR for more complete details. EKG Summary: Conclusion Sinus rhythm...normal P axis, V-rate 60- [address] segment or T wave abnormalities to suggest occlusive RI Anesthesia Assessment and Plan Anesthesia History Personal History: No History of General Anesthesia Family History: No Family History of Anesthesia Complications Exercise Tolerance Exercise Tolerance: Metabolic Equivalents>4 Pertinent Negatives Pertinent Negatives: No Symptoms of GERD, No Major Cardiovascular Symptoms or Complaints and No History of CVA/TIA Cardiac & Pulmonary Exam Cardiac Exam: Normal S1/S2 Heart Sounds Pulmonary Exam: Clear Bilateral Breath Sounds Implantable Cardiac Device Does patient have a Pacemaker or an ICD?: No Airway Exam Known Difficult Airway: No Mallampati Class: 1 Mouth Opening: Normal (> 3cm) Thyromental Distance: Greater than 3 cm Facial Hair: Full Brandon Neck Range of Motion: Full ROM Neck Circumference: Normal Teeth Condition: Normal Dentition ASA Classification ASA Score: ASA 2 Emergency Case?: No NPO Status NPO Status: NPO Clears >2 hours, Solids >8 hours Anesthesia Plan Resuscitation Status: Full Code Anesthesia Technique: General Anesthesia Airway Planned: Double Lumen Endotracheal Tube Monitors Used: Standard Monitors, Arterial Line, Central Line and SedLine Preoperative Comments:: 44yo M presenting with concern for SQ emphysema. Recent admission to surgery service for pneumothorax with pigtail placed (since removed); discharged yesterday. Since discharge worsening and spreading sensation of crepitus and pain, currently extending from his left neck down his left trunk, across lower abdomen, and up his right trunk. No respiratory distress. Last nights CT show extensive SQ emphysema, moderate left sided pneumothorax. Compared to initial CT on prior presentation, pneumothorax is significantly larger.
--- NOTE | 2024-10-27 11:47 | PGE_ITS ---
Date of Service Date of service: 10/27/24 Time of Service: 11:47 Assessment and Plan Assessment and plan (1) Pneumothorax: Status: Acute Assessment and plan: I spent some time with Andrei and going over his previous imaging, as well as his recent chest CT. Clearly, he is failing noninterventional therapy for his traumatic pneumothorax. Most likely explanation is a small visceral tear on the lung pleura resulting in a prolonged air leak which is decompressing into the subcutaneous soft tissues. Since he failed tube thoracostomy, I think escalation to video-assisted thorascopic surgery, with washout of the pleural space and attempted control of the visceral air leak this the next most appropriate treatment. We talked about the nature of that operation, and the risks of it. I explained the specific complications which included things such as prolonged pneumothorax or air leak, as well as pain associated with surgery. We talked about possibility of infection as well, although in the big picture of things I think it ongoing visceral air leak is probably a more risky measure with regards to evolution of an empyema. I think Brandon has a good understanding of proposed surgery, and expected outcomes. He is able to provide informed consent, and I think we should proceed with a left-sided VATS today for definitive treatment of his pneumothorax and air leak. Subjective Subjective Interval history since last seen: Brandon is continuing to have fairly significant soft tissue pain associated with subcutaneous emphysema. He denies any shortness of breath. Exam Resp Effort & Inspection: normal respiratory effort and able to speak in complete sentences Auscultation: bronchovesicular breath sounds and tactile fremitus present Tactile Fremitus: tactile fremitus present Skin Other: Extensive subcutaneous emphysema from left shoulder down through left arm and most of his torso. Objective Last Vital Signs Temp 99.0 F 10/27/24 11:03 Pulse 98 H 10/27/24 11:03 Resp 16 10/27/24 11:03 BP 120/82 10/27/24 11:03 Pulse Ox 96 10/27/24 11:03 PAWSS Have you Been Recently Intoxicated or Drunk Within the Last 30 days?: No Have you Ever Experienced Previous Episodes of Alcohol Withdrawal?: No Have you ever Experienced Withdrawal Seizures?: No Have you ever Experienced Delirium Tremens(DT)s?: No Have you ever undergone Alcohol Rehabilitation Treatment (i.e, inpt ot outpatient treatment programs)?: No Have you ever Experienced Blackouts?: No Have you ever Combined Alcohol with other Downers within the last 90 days?: No Have you ever Combined Alcohol with any other Substance of Abuse during the last 90 days?: No Positive Blood Alcohol level on Presentation? [PCS.BAL]: No Evidence of Increased Autonomic Activity (i.e. HR>120, tremor, sweating, agitation, nausea)?: No Result: 0 Time Spent with Patient Time Spent with Patient: 25-34 minutes Time was spent: preparing to see the patient(eg.review tests), referring, communicating with other health coronary care unit nurse, indepentently interpreting results, counseling the patient and care coordination
[2024-10-27] MEDS: Lactated Ringers 1,000 ML 30 ML IV (12:46)
--- NOTE | 2024-10-27 13:00 | PHA.REVIEW2 ---
Pharmacy Admission Review Admission Clinical Review Admission Pharmacy Review: Pneumothorax (Acute) Penicillins Allergy (Unknown, Unverified 10/26/24 22:13) Hives Resuscitation Status Full Code Height 6 ft 2 in Weight 90.718 kg Comments Comments/Follow Ups: Watch VS, labs (if ordered), and for med changes (IV to PO once patient is no longer NPO, possible VTE prophylaxis and bowel meds postop) Pharmacy Admission Review Renal Dosing Medications needing adjustments: N/A (no SCr on file) Anticoagulation DVT Prophylaxis: Reviewed (no chemical or physical VTE prophylaxis ordered, patient is going to the OR today) Opiate Usage Evaluate Pain Scale/Pains Meds: Reviewed Scheduled Bowel Reg ordered if on Opiates?: No (pt currently NPO) Relevant Labs Electrolytes, C-Reactive P, ESR: N/A (no labs on file) DM Control DM Control: N/A (No DM in medical history, no labs on file.) Cardiac Review BP, HR, EF%: Reviewed (BP and HR have been normal to high so far this admission) QTc Review QTc: Reviewed (QTc 427 on admission) IV to PO Switch IV Medications: Reviewed Home Meds Home Med List reviewed: Reviewed (no known home meds) Current Meds Current Medication Order Review: Reviewed Comments Comments/Follow Ups: Watch VS, labs (if ordered), and for med changes (IV to PO once patient is no longer NPO, possible VTE prophylaxis and bowel meds postop)
[2024-10-27] MEDS: ceFAZolin 2 GM/50 ML BAG 100 GM (13:28)
[2024-10-27] MEDS: Bupivacaine 0.5% Pres-Free W/EPI 30 ML VIAL (14:08)
--- NOTE | 2024-10-27 15:10 | CHAPLAIN ---
Andrei was up walking around his room when I visited. He said he hasn't had anything to eat or drink in a few days, and is waiting for some scheduled tests. He was here earlier in the week, discharged, and then returned. He expects his mom will be in later to visit. Andrei was pleasant, introduced himself and engaged in a conversation. I explained my role and offered support.
--- NOTE | 2024-10-27 15:12 | ROE_ITS ---
Operative Note Operative Note PRE-OP DIAGNOSIS: Left-sided pneumothorax with subcutaneous emphysema POST-OP DIAGNOSIS: same PROCEDURE: Left-sided VATS with mechanical pleurodesis and tube thoracostomy SURGEON: Kamaljit Calixto OPTICAL DISPENSER: Harmony Rodriguez ANESTHESIA TYPE: Local By Surgeon and General LMA/ETT Refer to Anesthesia Record ESTIMATED BLOOD LOSS: 50 PATHOLOGY: none sent COMPLICATIONS: None Patient was transported to: PACU Patient's condition: stable Implants: 28 Lithuanian angled chest tube Indications: Brandon is a 44-year-old male who had a standing level fall where he struck his left side resulting in a 9th rib fracture. This caused a left-sided pneumothorax. He was treated with tube thoracostomy. Upon removal of the tube thoracostomy, he developed subcutaneous emphysema suggesting a ongoing air leak. Chest x-rays were overall reassuring, use discharged home, however, the subcutaneous emphysema worsened and he came back to the hospital with increasing discomfort. Repeat imaging showed slight evolution of a left-sided pneumothorax and progression of the subcutaneous emphysema Procedure Description: I met with Brandon, I reviewed my recommendations for a left-sided VATS to help resolve his airleak and improve his subcutaneous emphysema. I explained the risks and benefits of the procedure, and he provided informed consent. We moved down into the operating room and he was assisted over onto the OR table. Dual- lumen endotracheal tube intubation was performed cannulating the left main bronchus. Positioning was confirmed with bronchoscopy as well as auscultation. A Degroot urinary catheter was placed using aseptic technique. Next, Brandon was rolled into the right lateral decubitus position, great care was taken to pad and support him appropriately. Beanbag was used to assist with positioning. Once Brandon was appropriately positioned tube placement was confirmed once again. Next, the left chest was prepped and draped in the usual fashion. I started with an incision in the anterior axillary line around the fourth interspace. I dissected down into the pleural space and established a 12 mm port here. A small amount of pneumothorax was evacuated. The 5 mm 30 degree scope was gently inserted in the lung. Well ventilated at this point. He was then transition to single lung ventilation. At the same time, establish 2 more 5 mm ports 1 in the midaxillary line around the seventh interspace, and the other last port was placed just a little bit caudal to the tip of the scapula and slightly towards the posterior axillary line. These port sites were anesthetized under the direct vision of the thoracoscope prior to insertion of the ports. There was minimal contamination of the pleura with just a small amount of serosanguineous fluid. The lung was allowed to passively deflate, with just a little bit of external pressure from from suction irrigation system. The pleural space was irrigated clean. A small amount of hematoma was observed in the posterior left hemithorax that seem consistent with the location of the rib fracture. I did not appreciate any discrete pleural tear here. Once the lung was completely deflated, the left lower lobe was gently grasped and rolled anterior and medial in an effort to expose the posterior aspect in the area where it appears a lung contusion or laceration may have occurred. There is a little bit of ecchymosis on the posterior left lower lobe, and 1 small punctate area that appeared may be consistent with a laceration. Although this is extremely subtle. I am not able to demonstrate any active air leak across it with positive pressure into the left lung. Next I performed a thorough examination of the remaining lung lennon. The left upper lobe appears totally normal. I do not see any significant bullous disease here. There is certainly no compelling source of air leak from the left upper lobe. The anterior portion of the left lower lobe in the visible portion of the fissure appeared normal. Again, no hematomas or obvious injuries were appreciated. The left lower was only slightly tethered towards the diaphragm by the left inferior pulmonary ligament. All of this looked healthy, without any evidence of injury or obvious air leak. Given that the only abnormality was a slight punctate lesion, I did not feel that it warranted a wedge resection. I think pleurodesis and evacuation of the pleural space will probably be sufficient to stop the airleak. Therefore, I performed mechanical pleurodesis using a combination of graspers as well as a mechanical scratch pad. Pleurodesis was conducted from the apex all the way along the posterior lateral aspect of the left pleura. The p leurodesis was carried forward onto the anterior aspect as well. Once this was completed, the mid axillary 5 mm port was removed, and a 28 Lithuanian angled chest tube was gently inserted through the anterior thoracostomy site and delivered back towards the posterior wall. Appropriate positioning was confirmed with the thoracoscope, and the remaining 5 mm port was removed. The tube thoracostomy was secured in place measuring approximately 16 cm at the skin level. The other ports were irrigated clean, and the skin was closed with subcuticular stitches. Band-Aids were applied to the 2 other 5 mm port sites, and a sterile sponge was used to cover the chest tube site. Drapes were removed, and the chest tube site was formally dressed with Xeroform gauze and sterile dressings. The chest tube was connected to a Pleur-evac in the standard fashion and negative pressure was applied as the patient was awoken from the anesthetic and extubated. After extubation, the patient was transitioned over to under waterseal and assisted back over to his hospital stretcher prior to transfer to the postanesthesia care unit. Date of Procedure: 10/27/24
--- NOTE | 2024-10-27 15:27 | DI.RAD_ITS ---
Exam(s) XR PORTABLE CHEST AP EXAM: XR PORTABLE CHEST AP CLINICAL HISTORY: New left tube thoracostomy. TECHNIQUE: 2D digital imaging was performed. COMPARISON: CR XR CHEST 2V PA LATERAL from 10/24/2024 as well as numerous prior chest x-rays. FINDINGS: Single AP portable view. There is now a large caliber left chest tube in place. It is distal tip is in the upper left pleural space. There is infiltrate or lung contusion in the ipsilateral left lung between the tube and the left hilum. It is somewhat difficult to determine the amount of remaining pneumothorax because of th e large amount of subcutaneous air. However, suspect that this is less than 10 percent. There is ex tensive left chest wall and left neck subcutaneous emphysema, and there is now also similar amount of subcutaneous emphysema over the opposite-right chest wall and right side of the neck. Fracture left 9th rib is noted. No right rib fractures. Clavicles are intact. Heart size is normal and midline. Pneumo mediastinum is also noted. No new infiltrates in the right lung. No obvious pleural effusions. No free air subjacent to the hemidiaphragms. IMPRESSION: New large caliber left chest tube. Small remaining left pneumothorax. Lung infiltrate versus contus ion in the left parahilar region medial to the chest tube. No pneumothorax on the opposite-right javid e.No infiltrates in the opposite-right lung. There no obvious pleural effusions on either side. There is prominent bilateral subcutaneous emphysema over both sides the neck and both sides of the ch est. There is also pneumomediastinum. DATA REPOSITORY: RADIATION DOSE DELIVERED:
[2024-10-27] MEDS: Ketorolac 15 MG/ML VIAL IVP (15:52)
--- NOTE | 2024-10-27 15:59 | W.ANESPOSTOP ---
Postoperative Evaluation Date, Time and Location Date Performed: 10/27/24 Time Performed: 15:59 Patient Location: PACU Vital Signs Most Recent Imported Vital Signs: Most Recent Vital Signs Temp Pulse Resp BP Pulse Ox 36.8 C 81 16 119/73 99 10/27/24 15:50 10/27/24 15:56 10/27/24 15:57 10/27/24 15:56 10/27/24 15:57 Pain Score Most Recent Pain Score: Most Recent Pain Score Pain Level [Neck/torso] 6 10/27/24 08:47 Pain Level 4 10/27/24 15:50 Assessment Mental Status: Awake (Alert & Oriented to Patient Baseline) Airway and Respiratory Function: Patent airway with normal (patient baseline) respiratory exam Cardiovascular Function: Hemodynamically Stable Hydration Status: Adequately Hydrated Nausea & Vomiting: No Nausea or Vomiting Pain: Pain is tolerable per patient Peripheral Nerve Block: Patient did not receive a nerve block Postoperative Comments:: Pt. doing well, conversive and drinking water. No respiratory distress and discomfort tolerable.
[2024-10-27] MEDS: Enoxaparin 40 MG/0.4 ML SYR SC (17:05)
[2024-10-27] MEDS: traMADol 50 MG TAB 100 MG PO (17:11)
[2024-10-27] MEDS: Cyclobenzaprine 10 MG TAB PO (18:42)
[2024-10-27] MEDS: HYDROmorphone 2 MG/ML SYR IVP (19:57)
[2024-10-27] MEDS: Acetaminophen 500 MG TAB 1000 MG PO (22:09)
[2024-10-28 03:16] VITALS: BP 127/78; PULSE 91; RESP 16; TEMP 36.4; O2SAT 100
[2024-10-28] MEDS: HYDROmorphone 2 MG/ML SYR IVP ×4 (03:24→22:31)
[2024-10-28] MEDS: Acetaminophen 500 MG TAB 1000 MG PO ×3 (06:16→21:04)
[2024-10-28] MEDS: Ketorolac 30 MG/ML VIAL IVP ×2 (06:16→19:13)
[2024-10-28 07:18] VITALS: BP 123/81; PULSE 72; RESP 15; TEMP 36.7; O2SAT 100
--- NOTE | 2024-10-28 07:30 | NUR.NOTE ---
Nursing Note: RN notified by REFERRAL NURSE that patient noted to be bleeding down side from chest tube. RN assessed and paged cash applications coordinator surgical provier at 0720. Provider stated reinforce dressing around chest tube. AP RN
[2024-10-28] MEDS: Psyllium PKT 1 EACH PO (08:07)
[2024-10-28] MEDS: Normal Saline Flush 10 ML SYR IVP (08:07)
--- NOTE | 2024-10-28 09:05 | DI.RAD_ITS ---
Exam(s) XR PORTABLE CHEST AP EXAM: XR PORTABLE CHEST AP CLINICAL HISTORY: pneumothorax TECHNIQUE: 2D digital imaging was performed of the chest. Two images were obtained. AP views were obtained. COMPARISON: CR XR PORTABLE CHEST AP from 10/27/2024 FINDINGS: The left chest tube has been repositioned. There is no nasogastric tube present. Please correlate w ith patient's clinical history. MEDIASTINUM: Normal. HEART: Normal. PULMONARY VASCULATURE: Normal. LUNGS: No focal consolidating infiltrates. PLEURAL SPACE: There is a persistent tiny left apical pneumothorax. No right pneumothorax. No pleur al effusion. BONE:Within normal limits for the patient's age. The displaced posterior left rib fractures again se en. OTHER FINDINGS:There is extensive subcutaneous air present. IMPRESSION: 1. There has been reabsorbed positioning of the left chest tube. The tip is along the lateral chest wall superiorly. 2. There is a tiny residual apical pneumothorax. 3. There is no nasogastric tube placed. Please correlate with the patient's history. 4. The lungs are clear. 5. Extensive subcutaneous emphysema. DATA REPOSITORY: RADIATION DOSE DELIVERED:
--- NOTE | 2024-10-28 09:07 | DI.VRAD_ITS ---
PROCEDURE INFORMATION: Exam: XR Chest Exam date and time: 10/28/2024 8:55 AM Age: 44 years old Clinical indication: Condition or disease; Ng tube TECHNIQUE: Imaging protocol: Radiologic exam of the chest. Views: 1 view. COMPARISON: CR XR PORTABLE CHEST AP 10/27/2024 3:23 PM FINDINGS: Tubes, catheters and devices: Left chest tube. No nasogastric tube identified. Lungs: No focal consolidation seen. Pleural spaces: No large pleural effusion seen. Heart/Mediastinum: No cardiomegaly. Bones/joints: No acute abnormality. Soft tissues: Extensive gas in the chest wall bilaterally. IMPRESSION: 1. Left chest tube. 2. Extensive gas in the body wall. Dictated and Authenticated by: Lizy Newman MD. Ordering:EDUARDA Mari MD
--- NOTE | 2024-10-28 10:27 | PGE_ITS ---
Date of Service Date of service: 10/28/24 Time of Service: 10:27 Assessment and Plan Assessment and plan (1) Pneumothorax: Status: Acute Assessment and plan: 44 yo man POD 1 from L VATS and pleurodesis. He still has a small air leak. No visible PTX on CXR. HD stable. No resp distress. PLAN: DVT ppx Maintain chest tube water seal analgesia prn Subjective Subjective Interval history since last seen: No events overnight. Patient's only complaints are discomfort around chest tube site. Exam Narrative Exam Narrative: Gen: Non-toxic, comfortable and interactive Neuro: Alert and oriented x3 Psych: Good mood and affect. Good insight and understanding into condition. Chest: Non-labored breathing, no wheezing, no visible shortness of breath. Delcid bcutaneous emphysema is palpable. Chest tube site free of redness. Dressing saturated with thin, serous fluid. (Changed at bedside). 20cc of dark blood in pleurEvac. Pleurevac: waterseal, good tidal, small airleak with each breath. Heart: Regular Objective Last Vital Signs Temp 98.1 F 10/28/24 07:18 Pulse 72 10/28/24 07:18 Resp 15 10/28/24 07:18 BP 123/81 10/28/24 07:18 Pulse Ox 100 10/28/24 07:18 PAWSS Have you Been Recently Intoxicated or Drunk Within the Last 30 days?: No Have you Ever Experienced Previous Episodes of Alcohol Withdrawal?: No Have you ever Experienced Withdrawal Seizures?: No Have you ever Experienced Delirium Tremens(DT)s?: No Have you ever undergone Alcohol Rehabilitation Treatment (i.e, inpt ot outpatient treatment programs)?: No Have you ever Experienced Blackouts?: No Have you ever Combined Alcohol with other Downers within the last 90 days?: No Have you ever Combined Alcohol with any other Substance of Abuse during the last 90 days?: No Positive Blood Alcohol level on Presentation? [PCS.BAL]: No Evidence of Increased Autonomic Activity (i.e. HR>120, tremor, sweating, agitation, nausea)?: No Result: 0 Time Spent with Patient Time Spent with Patient: <25 minutes Time was spent: preparing to see the patient(eg.review tests), obtaining and/or reviewing separately otained hiistory, ordering medications,tests, procedures, indepentently interpreting results, counseling the patient and care coordination
[2024-10-28 11:25] VITALS: BP 129/89; PULSE 75; RESP 15; TEMP 36.6; O2SAT 100
[2024-10-28] MEDS: Cyclobenzaprine 10 MG TAB PO ×2 (11:45→21:05)
[2024-10-28] MEDS: traMADol 50 MG TAB 100 MG PO ×2 (14:03→23:47)
[2024-10-28 15:18] VITALS: BP 117/96; PULSE 81; RESP 15; TEMP 37.2; O2SAT 99
--- NOTE | 2024-10-28 15:50 | NUR.NOTE ---
Nursing Note: Rn notified provider regarding paremeters for lovenox injection and platelet count. No labs have been obtained. Provider stated to just give the lovenox. BRIAN HUNG
[2024-10-28] MEDS: Enoxaparin 40 MG/0.4 ML SYR SC (16:03)
[2024-10-28 19:36] VITALS: BP 117/70; PULSE 77; RESP 19; TEMP 36.6; O2SAT 98
[2024-10-28 23:42] VITALS: BP 119/75; PULSE 75; RESP 18; TEMP 36; O2SAT 99
[2024-10-29] VITALS (9 sets, daily range): BP systolic 120–136; BP diastolic 82–94; PULSE 66–92; RESP 16–19; TEMP 35.2–37.7; O2SAT 97–100
--- NOTE | 2024-10-29 | DI.RAD_ITS ---
Exam(s) XR PORTABLE CHEST AP EXAM: XR PORTABLE CHEST AP CLINICAL HISTORY: assess PTX TECHNIQUE: 2D digital imaging was performed of the chest. Two images were obtained. AP views were obtained. COMPARISON: CR,XR XR PORTABLE CHEST AP from 10/28/2024 FINDINGS: The left chest tube is in stable position. MEDIASTINUM: Normal. HEART: Normal. PULMONARY VASCULATURE: Normal. LUNGS: Clear. PLEURAL SPACE: There is again seen a very tiny left apical pneumothorax. There has been no significa nt change compared to the prior examination. No right pneumothorax. No pleural effusion. BONE:Within normal limits for the patient's age. There has been no change in alignment of the left 9 th rib fracture. OTHER FINDINGS:There is again seen extensive subcutaneous emphysema. IMPRESSION: Stable tiny left apical pneumothorax. DATA REPOSITORY: RADIATION DOSE DELIVERED:
[2024-10-29] MEDS: Ketorolac 30 MG/ML VIAL IVP ×2 (02:08→09:46)
[2024-10-29] MEDS: Normal Saline Flush 10 ML SYR IVP ×2 (02:08→06:23)
[2024-10-29] MEDS: Acetaminophen 500 MG TAB 1000 MG PO ×3 (06:22→22:55)
[2024-10-29] MEDS: HYDROmorphone 2 MG/ML SYR IVP ×5 (06:23→23:29)
--- NOTE | 2024-10-29 07:10 | W.PM.PROGNOT ---
Date of Service Date of service: 10/29/24 Time of Service: 22:01 Assessment and Plan Assessment and plan (1) Pneumothorax: Status: Acute Assessment and plan: 44-year-old man is postop day 2 from left VATS pleurodesis for recurrent pneumothorax. He still has a small air leak but is otherwise hemodynamically stable and his respiratory status is stable. His subcutaneous emphysema is stable and does not seem to be worsening. There is really almost no output from the chest tube though there remains a small airleak. Chest x-ray today looks essentially unchanged. No obvious pneumothorax. Overall plan: For today stays on waterseal Tomorrow, clamp trial for at least 6-8 hours and monitor for worsening subcutaneous air or respiratory distress May be able to be discharged home with a Heimlich valve if he continues to have a persistent leak Subjective Subjective Interval history since last seen: No overnight events. No clinical changes. No subjective complaints at the bedside. Exam Narrative Exam Narrative: Gen: Non-toxic, comfortable and interactive. Neuro: Alert and oriented x3 Psych: Good mood and affect. Good insight and understanding into condition. Chest: Non-labored breathing, no wheezing, no visible shortness of breath. Crepitus remains stable bilateral chest wall and neck. Perhaps slightly less then yesterday. Chest tube is to waterseal. Good tidal. There really is not any significant fluid output in the chest tube but there is excellent tidalling. He still has a small air leak. Dressing is intact. Heart: Regular Objective Last Vital Signs Temp 97.0 F L 10/29/24 03:12 Pulse 66 10/29/24 03:12 Resp 16 10/29/24 05:59 BP 134/82 10/29/24 03:12 Pulse Ox 99 10/29/24 03:12 PAWSS Have you Been Recently Intoxicated or Drunk Within the Last 30 days?: No Have you Ever Experienced Previous Episodes of Alcohol Withdrawal?: No Have you ever Experienced Withdrawal Seizures?: No Have you ever Experienced Delirium Tremens(DT)s?: No Have you ever undergone Alcohol Rehabilitation Treatment (i.e, inpt ot outpatient treatment programs)?: No Have you ever Experienced Blackouts?: No Have you ever Combined Alcohol with other Downers within the last 90 days?: No Have you ever Combined Alcohol with any other Substance of Abuse during the last 90 days?: No Positive Blood Alcohol level on Presentation? [PCS.BAL]: No Evidence of Increased Autonomic Activity (i.e. HR>120, tremor, sweating, agitation, nausea)?: No Result: 0 Time Spent with Patient Time Spent with Patient: <25 minutes Time was spent: preparing to see the patient(eg.review tests), obtaining and/or reviewing separately otained hiistory, ordering medications,tests, procedures, indepentently interpreting results and counseling the patient
[2024-10-29] MEDS: Psyllium PKT 1 EACH PO (08:28)
--- NOTE | 2024-10-29 10:23 | NUR.NOTE ---
Nursing Note:Chest tube dressing removed/changed per Schroer verbal order. Tape removed, abd pads x 2 saturated with serosanguinous fluid. Gauze placed to support tube, Abd pads x 2 placed around dressing site, taped in place. Dressing CDI, pt tolerated well.
[2024-10-29] MEDS: Enoxaparin 40 MG/0.4 ML SYR SC (16:24)
[2024-10-29] MEDS: Cyclobenzaprine 10 MG TAB PO (23:29)
[2024-10-30] VITALS (7 sets, daily range): BP systolic 113–144; BP diastolic 75–92; PULSE 75–95; RESP 15–20; TEMP 36.2–37; O2SAT 97–99
[2024-10-30] MEDS: HYDROmorphone 2 MG/ML SYR IVP ×3 (04:36→12:24)
[2024-10-30] MEDS: Acetaminophen 500 MG TAB 1000 MG PO ×3 (05:56→20:32)
--- NOTE | 2024-10-30 08:50 | W.PM.PROGNOT ---
Date of Service Date of service: 10/30/24 Time of Service: 08:51 Assessment and Plan Assessment and plan (1) Pneumothorax: Status: Acute Assessment and plan: 44-year-old man postop day 3 from left VATS pleurodesis. He is hemodynamically stable. He still has a small airleak. He also continues to have persistent subcutaneous emphysema. Unclear if this is residual or persisting. Plan: Clamp chest tube X-ray this afternoon to make sure lung is staying up. As long as the lung is still up, we will leave the tube clamped overnight and if lung is still up in the morning and the subcutaneous emphysema is not worsening, we will pull the chest tube. If there are any concerns clinically or radiographically, he may need to be discharged home with a Heimlich valve. Subjective Subjective Interval history since last seen: No events overnight. No clinical changes. Exam Narrative Exam Narrative: Gen: Non-toxic, comfortable and interactive Neuro: Alert and oriented x3 Psych: Good mood and affect. Good insight and understanding into condition. Chest: Non-labored breathing, no wheezing, no visible shortness of breath. Crepitus remains grossly unchanged. It is still present. Dressing stained but intact. Left chest wall has stable ecchymosis from the index injury. Chest tube: Good tidal. Still has an air leak. No significant output at all. Remains to waterseal. Heart: Regular Objective Last Vital Signs Temp 97.9 F 10/30/24 07:33 Pulse 88 10/30/24 07:33 Resp 16 10/30/24 07:33 BP 134/75 10/30/24 07:33 Pulse Ox 99 10/30/24 07:33 PAWSS Have you Been Recently Intoxicated or Drunk Within the Last 30 days?: No Have you Ever Experienced Previous Episodes of Alcohol Withdrawal?: No Have you ever Experienced Withdrawal Seizures?: No Have you ever Experienced Delirium Tremens(DT)s?: No Have you ever undergone Alcohol Rehabilitation Treatment (i.e, inpt ot outpatient treatment programs)?: No Have you ever Experienced Blackouts?: No Have you ever Combined Alcohol with other Downers within the last 90 days?: No Have you ever Combined Alcohol with any other Substance of Abuse during the last 90 days?: No Positive Blood Alcohol level on Presentation? [PCS.BAL]: No Evidence of Increased Autonomic Activity (i.e. HR>120, tremor, sweating, agitation, nausea)?: No Result: 0 Time Spent with Patient Time Spent with Patient: <25 minutes Time was spent: preparing to see the patient(eg.review tests), obtaining and/or reviewing separately otained hiistory, ordering medications,tests, procedures, indepentently interpreting results, counseling the patient and care coordination
[2024-10-30] MEDS: Psyllium PKT 1 EACH PO (08:56)
--- NOTE | 2024-10-30 12:32 | PDOC.CMPRO ---
Date of service: 10/30/24 Time of Service: 12:35 Care Management Progress Note Progress Note Text Progress Note Text: Jelani was standing by the window, working on a word search puzzle. He appeared uncomfortable and stated that his pain is horrible, even his shirt hurts his skin. He is not sure how he will manage at home. CM notified Dr. Milligan of these concerns. Discharge Potential Discharge Needs: PCP F/U Appt (needs a T-doc appointment ([facility] at [facility]) and surgical f/u) Anticipated Barriers to Discharge: None Identified Patient/Family Education Needs: Review discharge instructions, discuss Ask Me Three Transportation: Private vehicle Plan: Anticipate that Andrei will be discharged home once medically stable. He will f/u with his new PCP and the surgeon, and continue per his plan of care. He will transport in a private vehicle. CM will continue to follow and update the plan as necessary. Social Determinants of Health Screening Social Determinants of Health last assessed: 10/30/24 Will the Patient Participate in the Screening?: Yes Do you worry about having a steady place to live?: no Problems where you live: no known problems In the past 12 months, have you had to go without electric, gas, oil or water in your home?: no Have you or anyone in your house had to go without enough food to eat?: no Has lack of transportation kept you from medical appointments or from doing things needed for daily living?: no Has anyone in your life made you feel unsafe or unsupported?: no How hard is it for you to pay for the very basics like food, housing, medical care, and heating? Would you say it is:: Not hard at all Do you want help finding or keeping work or a job?: I do not need or want help If for any reason you need help with day-to-day activities such as bathing, preparing meals, shopping, managing finances, etc., do you get the help you need?: I don?t need any help How often do you feel lonely or isolated from those around you?: Never Do you speak a language other than Brazilian at home?: No Does the patient want assistance with any of the above?: No
[2024-10-30] MEDS: Ketorolac 30 MG/ML VIAL IVP (13:44)
--- NOTE | 2024-10-30 16:00 | DI.RAD_ITS ---
Exam(s) XR CHEST 2V PA LATERAL EXAM: XR CHEST 2V PA LATERAL CLINICAL HISTORY: CHEST tube is clamped. R/O L PTX. TECHNIQUE: 2D digital imaging was performed. Two views. COMPARISON: CR XR PORTABLE CHEST AP from 10/29/2024 FINDINGS: HEART: Normal size. Aorta: Not dilated. PULMONARY VASCULATURE: Normal. MEDIASTINUM: Unremarkable. LUNGS: No change in position of left chest tube. PLEURAL SPACE: No pleural effusion. No pneumothorax is visible. BONE:Left 9th rib fracture again noted. SOFT TISSUES: extensive subcutaneous air again noted. IMPRESSION: No visible pneumothorax. Stable positioning of left chest tube. DATA REPOSITORY: RADIATION DOSE DELIVERED:
--- NOTE | 2024-10-30 16:00 | DI.RAD_ITS ---
Exam(s) XR CHEST 2V PA LATERAL EXAM: XR CHEST 2V PA LATERAL CLINICAL HISTORY: TO BE DONE AT 4pm TECHNIQUE: 2D digital imaging was performed of the chest. Three images were obtained. PA and later al views were obtained. COMPARISON: CR XR PORTABLE CHEST AP from 10/29/2024 CR XR CHEST 2V PA LATERAL from 10/30/2024 FINDINGS: The left chest tube is stable in position. There is a persistent tiny left apical pneumothorax. MEDIASTINUM: Normal. HEART: Normal. PULMONARY VASCULATURE: Normal. LUNGS: There is atelectasis in the left lung base. The right lung is clear. PLEURAL SPACE: There does appear to be a very tiny residual left apical pneumothorax. No right pneum othorax. No pleural effusion. BONE:Within normal limits for the patient's age. Stable left 9th rib fracture. OTHER FINDINGS:Persistent subcutaneous emphysema. IMPRESSION: Very tiny residual left apical pneumothorax. DATA REPOSITORY: RADIATION DOSE DELIVERED:
[2024-10-30] MEDS: HYDROmorphone 2 MG TAB PO ×3 (17:05→23:24)
[2024-10-30] MEDS: Normal Saline Flush 10 ML SYR IVP (17:07)
[2024-10-30] MEDS: Enoxaparin 40 MG/0.4 ML SYR SC (17:07)
[2024-10-30] MEDS: Cyclobenzaprine 10 MG TAB PO (18:23)
[2024-10-30] MEDS: Ibuprofen 400 MG TAB PO (20:32)
[2024-10-31] MEDS: Ibuprofen 400 MG TAB PO ×2 (01:41→08:38)
[2024-10-31] MEDS: Acetaminophen 500 MG TAB 1000 MG PO ×2 (01:42→08:38)
[2024-10-31] MEDS: traMADol 50 MG TAB 100 MG PO ×2 (01:44→08:42)
[2024-10-31 03:13] VITALS: BP 123/85; PULSE 71; RESP 18; TEMP 36; O2SAT 100
[2024-10-31 04:16] VITALS: RESP 16; RESP 17; O2SAT 100
[2024-10-31 07:28] VITALS: BP 126/74; PULSE 70; RESP 16; TEMP 36.7; O2SAT 99
--- NOTE | 2024-10-31 07:58 | W.PM.PROGNOT ---
Date of Service Date of service: 10/31/24 Time of Service: 13:30 Assessment and Plan Assessment and plan (1) Pneumothorax: Status: Acute Assessment and plan: 44-year-old man postop day 4 from left VATS pleurodesis for recurrent pneumothorax and air leak. He is hemodynamically stable. He has tolerated chest tube clamped for 24 hours with no worsening subcutaneous emphysema and no worsening pneumothorax on imaging. I discussed with him that this mimics not having a chest tube and at all. Since he tolerated 24 hours of this without anything getting worse, it is almost certain that he will tolerate having the chest tube removed without having any worsening symptoms. He agreed and I removed the chest tube at the bedside. Overall plan: Remove chest wall dressing in 3 days No heavy lifting or strenuous activity for the next couple of weeks. No smoking or vaping Subjective Subjective Interval history since last seen: No events overnight. He feels fine. Chest tube has been clamped since yesterday afternoon. Almost 24 hours. He feels like his crepitus is less, certainly not more. No shortness of breath and no increased chest pain. Exam Narrative Exam Narrative: Gen: Non-toxic, comfortable and interactive Neuro: Alert and oriented x3 Psych: Good mood and affect. Good insight and understanding into condition. Neck: No crepitus in the neck Chest: Non-labored breathing, no wheezing, no visible shortness of breath. Chest wall crepitus does actually feel less then previous. Certainly not worse. Chest tube is intact and clamped. The VATS port sites look perfect. Heart: Regular Objective Last Vital Signs Temp 98.1 F 10/31/24 07:28 Pulse 70 10/31/24 07:28 Resp 16 10/31/24 07:28 BP 126/74 10/31/24 07:28 Pulse Ox 99 10/31/24 07:28 PAWSS Have you Been Recently Intoxicated or Drunk Within the Last 30 days?: No Have you Ever Experienced Previous Episodes of Alcohol Withdrawal?: No Have you ever Experienced Withdrawal Seizures?: No Have you ever Experienced Delirium Tremens(DT)s?: No Have you ever undergone Alcohol Rehabilitation Treatment (i.e, inpt ot outpatient treatment programs)?: No Have you ever Experienced Blackouts?: No Have you ever Combined Alcohol with other Downers within the last 90 days?: No Have you ever Combined Alcohol with any other Substance of Abuse during the last 90 days?: No Positive Blood Alcohol level on Presentation? [PCS.BAL]: No Evidence of Increased Autonomic Activity (i.e. HR>120, tremor, sweating, agitation, nausea)?: No Result: 0 Time Spent with Patient Time Spent with Patient: 35-49 minutes Time was spent: preparing to see the patient(eg.review tests), obtaining and/or reviewing separately otained hiistory, indepentently interpreting results, counseling the patient and care coordination
--- NOTE | 2024-10-31 08:30 | DI.RAD_ITS ---
Exam(s) XR PORTABLE CHEST AP EXAM: XR PORTABLE CHEST AP CLINICAL HISTORY: Assess PTX TECHNIQUE: 2D digital imaging was performed. COMPARISON: CR XR CHEST 2V PA LATERAL from 10/30/2024 FINDINGS: LUNGS: Clear. The left chest tube position is unchanged. Persistent tiny left apical pneumothorax. HEART: Normal size. AORTA: Normal diameter. BONES: Unremarkable for age. Soft tissues: Extensive soft tissue air again noted. IMPRESSION: Stable tiny left apical pneumothorax. DATA REPOSITORY: RADIATION DOSE DELIVERED:
[2024-10-31 10:59] VITALS: BP 114/83; PULSE 84; RESP 18; TEMP 37.6; O2SAT 99
--- NOTE | 2024-10-31 14:19 | DSE_ITS ---
Date of service: 10/31/24 Time of Service: 14:19 DS: Diagnosis Discharge Diagnosis (1) Pneumothorax: Status: Acute Discharge Plan Disposition Patient Disposition: Home Condition: Improving Discharge Details Reason For Visit: pneumothorax Admit Date/Time: 10/26/24 23:57 Admit Provider: Harmony Garcia Attending Provider: Harmony Garcia Primary Care Provider: None,None Hospital Course Hospital Course: 44-year-old man had to return to the hospital because his pneumothorax came back and he developed significant subcutaneous emphysema. He is recommended to undergo a VATS pleurodesis and this was uneventful. He did have a small air leak after the procedure and on postoperative day 3 it was decided to do a clamp trial. He tolerated the clamp trial for almost 24 hours without worsening symptoms. He did not have an enlarging pneumothorax and did not have worsening subcutaneous emphysema and so the chest tube was removed and he was then discharged home. Home Meds and New Rx's Prescriptions: No Action No Known Home Meds Discharge Instructions Additional Instructions: Incisions: They do not need to be covered. Dressing: Remove in 3 days. It is okay to shower over top of the waterproof dressing. Diet: As tolerated Activity: No strenuous activity and no heavy lifting but otherwise no restrictions. Do not smoke or vape. Activity:: No strenuous activity or Equipment/Supplies:: No Equipment Needed Diet:: As Tolerated DS: Summary Time Spent with Patient providing and/or coordinating discharge services: Greater than 30 minutes Status at Discharge Functional status at discharge: independent ambulation Overall status at discharge: patient is progressing back to baseline Mental Status: mental status grossly normal Speech and Movement: speech and movement normal Mood: congruent mood Affect: normal affect Quality:SDOH Health Related Social Needs: Health related social needs housing instability, house d, with risk of homelessness (Z59.811), problems related to housing/economic circumstances (Z59.89), problems with daily activities (Z73.9), feeling lonely/isolated (Z60.8), education (Z55.6) Exam Psych Mental Status: mental status grossly normal Speech and Movement: speech and movement normal Mood: congruent mood Affect: normal affect DS: Data Vitals/I&O Vitals and I&O: Vital Signs Temperature 99.7 F H 10/31/24 10:59 Temperature Source Temporal Artery Scan 10/31/24 10:59 Pulse 84 10/31/24 10:59 Pulse Rhythm Regular 10/27/24 00:47 Pulse 78 10/27/24 16:01 Respiratory Rate 18 10/31/24 10:59 Respiratory Effort Normal 10/27/24 00:47 Respiratory Depth Normal 10/27/24 00:47 Respiratory Pattern Normal 10/27/24 00:47 Blood Pressure 114/83 10/31/24 10:59 Blood Pressure Mean 80 10/27/24 16:01 Blood Pressure Position Sitting 10/26/24 22:07 Pulse Oximetry 99 10/31/24 10:59 Respiratory End-tidal CO2 33 10/27/24 16:01 Oxygen Delivery Method Room Air 10/31/24 10:59 Oxygen Flow Rate 0 10/31/24 10:59 Pain Level 4 10/30/24 23:45 Comment RN Notified 10/30/24 04:25 Intake & Output 10/30/24 10/31/24 10/31/24 23:59 11:59 23:59 Intake Total Balance Intake: IV Other: Urine Color Yellow Urine Odor Normal Comment pt voided in bathroom per pt voided x1 pt voided x1 Stool Size Moderate Stool Characteristics Formed PFSH All Active Problems Subcutaneous emphysema (Acute) Emphysematous bleb of lung (Acute) Daily consumption of alcohol (Acute) Marijuana use, continuous (Acute) Pneumothorax (Acute) Fracture of rib of left side (Acute) Smoker (Acute) Medical History (Updated 10/26/24 @ 00:08 by CINDI HARRIS) No significant past medical history Surgical History (Updated 01/14/20 @ 16:32 by Jayne Leblanc DO) No significant past surgical history Social History Smoking/Tobacco Use Status: Current every day Tobacco Type: cigarettes Smoking risk assessment performed?: Yes Alcohol Intake: current Alcohol Intake frequency: 3 or more drinks per day Alcohol type: beer Drug use: Daily Substance use type: marijuana Housing: other Do you feel safe at home: Yes Do you feel safe in your relationship?: Yes Time Spent with Patient Time Spent with Patient: 45-69 minutes Time was spent: preparing to see the patient(eg.review tests), indepentently interpreting results, counseling the patient and care coordination
--- NOTE | 2024-10-31 14:54 | PDOC.CMDIS ---
Date of service: 10/31/24 Time of Service: 14:54 LACE Index Scoring Tool Questions: Length of Stay (in days): 4 - 6 Was the patient admitted via the E.D.?: Yes E.D. Visits: 2 Answers: Total Score: 9 Risk of Readmission: Low Risk Care Management Discharge Plan Reason for Hospitalization: pneumothorax s/p rib fracture Discharge Plan: Andrei is discharged home today with no new orders. He has a pain management plan in place. He will alternate Tylenol and ibuprofen and has 10 Tramadol if needed. Andrei will f/u with a new provider at [facility] on 11/08/24. Andrei worked with [employer] and has medicaid in place until he is able to return to work, and then he has a plan to purchase. He is very pleased with this. Andrei was very appreciative of the time and efforts that [facility] staff provided. Andrei will follow his discharge plan and will transport himself home. Patient/Family Education Needs: Review of discharge instructions, activity, limitations and discuss ask me 3. SDOH Health Related Social Needs: Health related social needs housing instability, housed, with risk of homelessness (Z59.811), problems related to housing/economic circumstances (Z59.89), problems with daily activities (Z73.9), feeling lonely/isolated (Z60.8), education (Z55.6)
== END 2024-10-31 15:18 | disposition home or self-care (01) | DRG 164 ==
LOC: ER 10-27 00:03 → MS 10-27 00:37
PROVIDERS: Surgery; Admitting Provider Surgery; Emergency Provider Student in an Organized Health Care Education/Training Program; Visit Provider Surgery
PROC: 0B5P4ZZ Destruction of Left Pleura, Percutaneous Endoscopic Approach (ICD-10-PCS; CPT 32601; principal; 2024-10-27 13:00)
DX: S27.0XXA Traumatic pneumothorax, initial encounter (principal); S22.32XA Fracture of one rib, left side, initial encounter for closed fracture; W18.39XA Other fall on same level, initial encounter; T79.7XXA Traumatic subcutaneous emphysema, initial encounter; F12.90 Cannabis use, unspecified, uncomplicated; F10.90 Alcohol use, unspecified, uncomplicated; F17.210 Nicotine dependence, cigarettes, uncomplicated
CPT/HCPCS: 36415; 71250; 93005; 96374; 99285; J1650; 70490; 71045; 71046; 93010; J0131; J0690; J1100; J1171; J1885; J2003; J2250; J2270; J2371; J2405; J2704